=== PATIENT | male | born 1980 | race Caucasian/White ===

== ENCOUNTER → 2017-02-02 | Outpatient (CLI) | payer BC ==
[2017-02-02 18:21] LABS: Blood Urea Nitrogen 14 mg/dL (9-20); Non-African American GFR(MDRD) >60 (>60 ml/min/1.73 sqM)
--- NOTE | 2017-02-03 10:41 | CT ---
EXAMINATION TYPE: CT soft tissue neck w con DATE OF EXAM: 02/02/2017 7:02 PM COMPARISON: NONE HISTORY: Left sided neck swelling without palpable lump CT DLP: 776.5 mGycm CONTRAST: Patient injected with 100 mL of Omnipaque 300. TECHNIQUE: Axial images at 3 mm thick sections. Reconstructed images in the coronal plane and sagitt al plane are reviewed. FINDINGS: Limited CT sections are obtained the lung apices. The lung apices appear clear. CT neck: The torus tubarius and fossa of Rosenmuller are normal. Set Up Machinist spaces are normal. Para nasal sinuses and mastoid air cells are clear. Parotid glands appear normal and symmetrical. Submandibular glands, are normal. Parapharyngeal spac es are normal. No suspicious adenopathy within the upper neck is evident. There are scattered small submental and submandibular lymph nodes present. 0.9 cm lymph node is in the left posterior occipital subcutaneous tissues. Series 3 image 72. No mediastinal adenopathy is within the [id number]. There is an enlarged left supraclavicular lymph node measuring 2.8 cm. A left lower cervical chain ly mph node measures 1.7 cm. These are posterior to the sternocleidomastoid muscle. A 1.5 cm lymph node is on the right in the supraclavicular region. The hypopharynx appears within normal limits. Vocal cord level appear symmetrical. Thyroid as visualized is normal. The ascending thoracic aorta at the level the main pulmonary artery is 3.9 cm patent main pulmonary a rtery the bifurcation is 3.1 cm. Osseous structures are normal. IMPRESSIONS: 1. Enlarged lower cervical chain supraclavicular neck lymph nodes. Additional workup is recommended. Differential could include, but is not limited to, lymphoma, reactionary changes, metastasis.
== END | disposition home or self-care (01) ==
LOC: RADCTMAIN 17:40
PROVIDERS: ATTEND Surgery
DX: R59.0 Localized enlarged lymph nodes (principal); L98.9 Disorder of the skin and subcutaneous tissue, unspecified
CPT/HCPCS: 82565; 84520; 70491; Q9967

== ENCOUNTER 2017-02-22 07:58 | Day surgery (SDC) | payer BC ==
[2017-02-22 08:15] VITALS: RESP 16; TEMP 97.7
[2017-02-22 08:51] LABS: Glucose,Whole Blood 208 mg/dL (75-99)
--- NOTE | 2017-02-22 09:30 | US ---
ULTRASOUND GUIDED FNA LEFT NECK MASS BIOPSY: CLINICAL HISTORY: Left neck mass FINDINGS: The procedure was explained to the patient. The risks, complications, benefits and alternatives were discussed and any questions were answered. Informed consent was obtained. Patient was placed supin e on the ultrasound table and prepped and draped in the usual sterile fashion. Utilizing a 25 gauge needle, single pass was made into the left neck mass. Lesion was completely anechoic and cystic and a pproximately 20 cc of yellow serous fluid was aspirated. Patient was stable throughout the procedure. Pathology is pending. All elements of maximal barrier and sterile technique were utilized. IMPRESSION: 1. Successful ultrasound guided FNA left neck mass biopsy.
[2017-02-22 10:05] VITALS: BP 121/75; PULSE 79
[2017-02-25 09:32] LABS: Mis test requested (Non-blood) BCELL FLOW
== END 2017-02-22 09:45 | disposition home or self-care (01) ==
LOC: RADPROMAIN 07:58
PROVIDERS: ATTEND Surgery
DX: R59.0 Localized enlarged lymph nodes (principal)
CPT/HCPCS: 10022; 76942; 88173; 88184; 88185; 88305; 88341; 88342

== ENCOUNTER 2018-11-08 16:27 | Inpatient (IN) | payer BC, OTHER ==
[2018-11-08] MEDS ORDERED: KETOROLAC 30 MG/ML 1 ML VIAL IVP STA (17:03)
[2018-11-08] MEDS ORDERED: SODIUM CHLORIDE 0.9% 500 ML 500 ML IV ONE (17:03)
--- NOTE | 2018-11-08 17:04 | ED ---
General Adult HPI - General Chief complaint: Skin/Abscess/Foreign Body Stated complaint: lump on neck Time Seen by Provider: 11/08/18 16:45 Source: patient, RN notes reviewed, old records reviewed Mode of arrival: ambulatory Limitations: no limitations - History of Present Illness Initial comments: 38-year-old male brought significant past medical history presents with pain and swelling in the right side of his neck. Symptoms have progressed over the past 3 days. He denies any preceding symptoms. Pain has become quite severe. Worse with range of motion. Denies fever or chills. Denies chest pain. No history of diabetes. No history of cancer. Patient denies symptoms in his right arm. - Related Data Home Medications Medication Instructions Recorded Confirmed [id number]-Trnd [id number] 2 tab PO BID 11/08/18 11/08/18 [Excedrin] Ibuprofen [Motrin Ib] 400 mg PO Q4H 11/08/18 11/08/18 Loratadine [Claritin] 10 mg PO DAILY 11/08/18 11/08/18 Naproxen Sodium [Aleve] 220 mg PO DAILY 11/08/18 11/08/18 Naproxen Sodium [Aleve] 440 mg PO HS 11/08/18 11/08/18 Omeprazole 20 mg PO DAILY 11/08/18 11/08/18 diphenhydrAMINE [Benadryl] 50 mg PO HS PRN 11/08/18 11/08/18 Allergies Allergy/AdvReac Type Severity Reaction Status Date / Time amoxicillin Allergy Unknown Verified 11/08/18 17:22 Childhood Review of Systems ROS Statement: Those systems with pertinent positive or pertinent negative responses have been documented in the HPI. ROS Other: All systems not noted in ROS Statement are negative. Past Medical History Past Medical History: Diabetes Mellitus History of Any Multi-Drug Resistant Organisms: None Reported Additional Past Surgical History / Comment(s): tonsillectomy, adenoids, deviated septum repair. Past Anesthesia/Blood Transfusion Reactions: No Reported Reaction Past Psychological History: Anxiety Smoking Status: Light tobacco smoker Past Alcohol Use History: Rare Past Drug Use History: None Reported - Past Family History Mother Family Medical History: Diabetes Mellitus General Exam Limitations: no limitations General appearance: alert, in no apparent distress Head exam: Present: atraumatic, normocephalic Eye exam: Present: normal appearance, PERRL Neck exam: Present: other (Right lower lateral neck, significant swelling, induration, approximately 67 L wide by 5 cm total. There is some mild overlying erythema, no fluctuance.) Respiratory exam: Present: normal lung sounds bilaterally. Absent: respiratory distress, wheezes Cardiovascular Exam: Present: normal rhythm, tachycardia GI/Abdominal exam: Present: soft. Absent: distended, tenderness Extremities exam: Present: normal inspection, full ROM Neurological exam: Present: alert, oriented X3 Psychiatric exam: Present: normal affect, normal mood Skin exam: Present: warm, dry, intact Course Vital Signs 11/08/18 11/08/18 16:30 19:31 Temperature 98.6 F 99.6 F Pulse Rate 109 H 101 H Respiratory 16 18 Rate Blood Pressure 130/87 153/96 O2 Sat by Pulse 100 97 Oximetry Medical Decision Making - Medical Decision Making 38-year-old male presenting with pain and swelling right lateral neck. Patient has significant induration, erythema, swelling at the base of his right lateral neck. Laboratory studies reveal leukocytosis, 15.1, patient does have elevated glucose, no history of diabetes,. CT shows very enlarged lymph nodes with adjacent edema and cellulitis. Patient had previous lymphadenopathy on the left side of his neck, he is uncertain what his workup revealed for this issue, resolved without treatment. Patient was lost to follow-up due to insurance reasons. Patient will be admitted on IV antibiotics, hematology oncology placed on consult Case discussed with Dr. Wiley will admit. - Lab Data Result diagrams: 11/08/18 17:17 11/08/18 17:17 Lab Results 11/08/18 11/08/18 11/08/18 Range/Units 17:17 17:17 17:17 WBC 15.1 H (3.8-10.6) k/uL RBC 5.76 (4.30-5.90) m/uL Hgb 16.4 (13.0-17.5) gm/dL Hct 48.4 (39.0-53.0) % MCV 84.1 (80.0-100.0) fL MCH 28.5 (25.0-35.0) pg MCHC 33.9 (31.0-37.0) g/dL RDW 13.0 (11.5-15.5) % Plt Count 222 (150-450) k/uL Neutrophils % 82 % Lymphocytes % 10 % Monocytes % 6 % Eosinophils % 1 % Basophils % 1 % Neutrophils # 12.4 H (1.3-7.7) k/uL Lymphocytes # 1.5 (1.0-4.8) k/uL Monocytes # 0.9 (0-1.0) k/uL Eosinophils # 0.1 (0-0.7) k/uL Basophils # 0.1 (0-0.2) k/uL Sodium 136 L (137-145) mmol/L Potassium 4.0 (3.5-5.1) mmol/L Chloride 101 (98-107) mmol/L Carbon Dioxide 23 (22-30) mmol/L Anion Gap 12 mmol/L BUN 8 L (9-20) mg/dL Creatinine 0.55 L (0.66-1.25) mg/dL Est GFR (CKD-EPI)AfAm >90 (>60 ml/min/1.73 sqM) Est GFR (CKD-EPI)NonAf >90 (>60 ml/min/1.73 sqM) Glucose 294 H (74-99) mg/dL Plasma Lactic Acid Kunal 1.4 (0.7-2.0) mmol/L Calcium 9.1 (8.4-10.2) mg/dL Total Bilirubin 1.3 (0.2-1.3) mg/dL AST 30 (17-59) U/L ALT 44 (21-72) U/L Alkaline Phosphatase 127 H (38-126) U/L Total Protein 6.9 (6.3-8.2) g/dL Albumin 3.8 (3.5-5.0) g/dL Disposition Clinical Impression: Lymphadenopathy, Cellulitis Disposition: ADMITTED IP TO THIS [facility] Condition: Stable Is patient prescribed a controlled substance at d/c from ED?: No Referrals: None,Stated [Primary Care Provider] - 1-2 days Decision to Admit Reason: Admit from EC Decision Date: 11/08/18 Decision Time: 19:47
[2018-11-08 17:54] LABS: ALT 44 U/L (21-72); AST 30 U/L (17-59); Albumin 3.8 g/dL (3.5-5.0); Alkaline Phosphatase 127 U/L (38-126); Anion Gap 12 mmol/L; Blood Urea Nitrogen 8 mg/dL (9-20); Calcium 9.1 mg/dL (8.4-10.2); Carbon Dioxide 23 mmol/L (22-30); Chloride 101 mmol/L (98-107); Glucose 294 mg/dL (74-99); Sodium 136 mmol/L (137-145); Total Bilirubin 1.3 mg/dL (0.2-1.3); Total Protein 6.9 g/dL (6.3-8.2)
[2018-11-08 18:00] LABS: Basophils # (A) 0.1 k/uL (0-0.2); Basophils % (A) 1 %; Eosinophils # (A) 0.1 k/uL (0-0.7); Eosinophils % (A) 1 %; HCT 48.4 % (39.0-53.0); HGB 16.4 gm/dL (13.0-17.5); Lymphocytes # (A) 1.5 k/uL (1.0-4.8); Lymphocytes % (A) 10 %; MCH 28.5 pg (25.0-35.0); MCHC 33.9 g/dL (31.0-37.0); MCV 84.1 fL (80.0-100.0); Mean Platelet Volume 9.5; Monocytes # (A) 0.9 k/uL (0-1.0); Monocytes % (A) 6 %; Neutrophils # (A) 12.4 k/uL (1.3-7.7); Neutrophils % (A) 82 %; Platelet Count 222 k/uL (150-450); RBC 5.76 m/uL (4.30-5.90); WBC 15.1 k/uL (3.8-10.6)
[2018-11-08] MEDS ORDERED: CLINDAMYCIN 600 MG in DEXTROSE 5% IN WATER 50 ML IVPB STA ×2 (18:54)
--- NOTE | 2018-11-08 19:20 | CT ---
EXAMINATION TYPE: CT soft tissue neck w con DATE OF EXAM: 11/08/2018 7:01 PM COMPARISON: 02/02/2017 HISTORY: Right-sided neck lump CT DLP: mGycm Automated exposure control for dose reduction was used. CONTRAST: CT scan of the neck is performed following , patient injected with mL of . Axial images are obtained , coronal and sagittal reformatted images are reviewed. The contrast was Isovue 100 mL. FINDINGS: There is normal branching pattern of the great vessels on the aortic arch. Thyroid gland is symmetric . There is normal contrast opacification of the carotid arteries and jugular veins. There is bilatera l contrast opacification of the vertebral arteries. Left vertebral artery is larger than the right. B asilar artery fills mostly from the left side. The parotid glands are fairly symmetric. Submandibular salivary glands are symmetric. There is increa sed density in the subcutaneous fat at the base of the neck on the right side. There are multiple enl arged lymph nodes on the right side posterior triangle that measure up to 3 cm. There is a single enl arged posterior triangle lymph node on the left side that measures 1.5 cm. There is some thickening o f the neck muscles laterally on the right side compared to the left. There is mild subcutaneous edema . There is no discrete fluid collection. There is no anterior cervical adenopathy. There is no evidence of a pharyngeal mass. There is mucosal thickening right maxillary sinus. There i s no evidence of orbital mass. Prevertebral soft tissues appear normal. Epiglottis appears normal. Rothman bglottic trachea appears normal. IMPRESSION: Enlarged posterior triangle right-sided lymph nodes that appears significantly increased compared to old CT scan and consistent with inflammatory process. There is adjacent subcutaneous susan ma consistent with cellulitis. There is enlarged left side posterior triangle lymph node that is sign ificantly smaller than old CT scan. This node measures 1.5 cm in previous exam 3.2 cm. No evidence of an abscess.
[2018-11-08] MEDS ORDERED: NALOXONE 0.4 MG/ML 1 ML VIAL IV PRN (19:41)
[2018-11-08] MEDS: SODIUM CHLORIDE 0.9% 1,000 ML IV SCH (19:51)
[2018-11-08 22:02] LABS: Glucose,Whole Blood 287 mg/dL (75-99)
[2018-11-08 22:04] VITALS: BMI 39.3
[2018-11-08] MEDS: INSULIN ASPART (NovoLOG) 100 UNIT/ML VIAL SQ SCH (22:09)
--- NOTE | 2018-11-08 22:28 | P.HPIM ---
History of Present Illness H&P Date: 11/08/18 Chief Complaint: neck mass 38-year-old male with no significant past medical history. Patient presented to the ER due to severe neck pain. Patient noted that he felt a palpable painful mass over the right side of his neck, started as a small knot that he felt on Tuesday 3 days ago which was increasing in size until today when started to cause pain with range of motion otherwise he denies any fevers or chills he considered seeking medical attention went to urgent care who sent him to the ER. Patient has never had anything similar on this side but recalls few years ago had palpable nodes on the left side of his neck which is not similar to this presentation per his report at that time he had FNA biopsy that showed reactive nodes. Patient denies any recent traveling or injury to the neck he denies any bug bites. He denies any active dental issues (patient in general has poor dental hygiene) patient denies any pain in his ears any difficulty with swallowing or any trouble breathing. And he denies any chest pain abdominal pain diarrhea nausea vomiting. In the emergency department CAT scan of the neck suggested cellulitis and inflammatory changes in the subcutaneous tissue at the area of the mass with multiple reactive lymph nodes. Review of Systems Pertinent positives as noted in HPI. All other systems were reviewed and are negative Past Medical History Past Medical History: Diabetes Mellitus History of Any Multi-Drug Resistant Organisms: None Reported Additional Past Surgical History / Comment(s): tonsillectomy, adenoids, deviated septum repair. Past Anesthesia/Blood Transfusion Reactions: No Reported Reaction Past Psychological History: Anxiety Smoking Status: Light tobacco smoker Past Alcohol Use History: Rare Past Drug Use History: None Reported - Past Family History Mother Family Medical History: Diabetes Mellitus Medications and Allergies Home Medications Medication Instructions Recorded Confirmed Type [id number]-[id number] [id number] 2 tab PO BID 11/08/18 11/08/18 History [Excedrin] Ibuprofen [Motrin Ib] 400 mg PO Q4H 11/08/18 11/08/18 History Loratadine [Claritin] 10 mg PO DAILY 11/08/18 11/08/18 History Naproxen Sodium [Aleve] 220 mg PO DAILY 11/08/18 11/08/18 History Naproxen Sodium [Aleve] 440 mg PO HS 11/08/18 11/08/18 History Omeprazole 20 mg PO DAILY 11/08/18 11/08/18 History diphenhydrAMINE [Benadryl] 50 mg PO HS PRN 11/08/18 11/08/18 History Allergies Allergy/AdvReac Type Severity Reaction Status Date / Time amoxicillin Allergy Unknown Verified 11/08/18 17:22 Childhood Physical Exam Vitals: Vital Signs Temp Pulse Resp BP Pulse Ox 11/08/18 20:40 99.8 F H 99 18 131/67 97 11/08/18 19:31 99.6 F 101 H 18 153/96 97 11/08/18 16:30 98.6 F 109 H 16 130/87 100 Intake and Output 11/08/18 11/08/18 11/08/18 06:59 14:59 22:59 Other: Weight 113.852 kg Constitutional: No acute distress, conversant, pleasant Eyes: Anicteric sclerae, moist conjunctiva, no lid-lag Pupils equal round reactive to light ENMT: NC/AT Oropharynx clear, no erythema, no exudates, very poor dental hygiene Neck: Supple, painful range of motion when he bends his neck to the right side, palpable painful mass at the base of the right side of the neck tender to palpation attached to the overlying skin slightly fluctuant but painful no surrounding erythema or induration over the skin no signs of ulcers or skin breakage. No carotid bruits No thyromegaly Lungs: Clear to auscultation Clear to percussion Normal respiratory effort, no accessory muscle use Cardiovascular: Heart regular in rate and rhythm, No murmurs, gallops, or rubs No peripheral edema Abdominal: Soft Nontender, no guarding, rebound or rigidity Abdomen moving with respiration Normoactive bowel sounds No hepatomegaly, No splenomegaly No palpable mass No abdominal wall hernia noted Skin: Normal temperature, tone, texture, turgor No induration No subcutaneous nodules No rash, lesions No ulcers Extremities: No digital cyanosis No clubbing Pedal pulses intact and symmetrical Radial pulses intact and symmetrical No calf tenderness Psychiatric: Alert and oriented to person, place and time Appropriate affect fair judgement Neuro Muscles Strength 5/5 in all 4 extremities Sensation to light touch grossly present throughout Cranial nerves II-XII grossly intact No focal sensory deficits Lymphatics: Palpable cervical lymph nodes multiple Results CBC & Chem 7: 11/08/18 17:17 11/08/18 17:17 Labs: Abnormal Lab Results - Last 24 Hours (Table) 11/08/18 11/08/18 Range/Units 17:17 17:17 WBC 15.1 H (3.8-10.6) k/uL Neutrophils # 12.4 H (1.3-7.7) k/uL Sodium 136 L (137-145) mmol/L BUN 8 L (9-20) mg/dL Creatinine 0.55 L (0.66-1.25) mg/dL Glucose 294 H (74-99) mg/dL Alkaline Phosphatase 127 H (38-126) U/L Assessment and Plan Assessment: 38-year-old male with no significant past medical history admitted as an inpatient with anticipated length of stay more than 48 hours due to suspected subcutaneous abscess over the base of the right side of the neck along with reactive lymph nodes patient was started on IV antibiotic awaiting general surgery evaluation for possible drainage. Patient had history 2 years ago where he had swollen lymph nodes over the left side of the neck FNA biopsy was performed at that time revealed reactive lymph nodes but patient was lost to follow-up at that time Plan: Sepsis 2/2 Skin abscess with reactive lymph nodes Cultures IV clindamycin Gen. surgery consultation for possible drainage Pain control with Toradol Monitor vital signs Possible diabetes mellitus Check A1c Insulin sliding scale DVT prophylaxis heparin subcu 3 times a day GERD on omeprazole Surrogate decision-maker: Patient CODE STATUS: Full code Discussed with: Patient, ER, RN Anticipated discharge: 48-[address]: Home A total of 60 minutes was spent on the care of this complex patient more than 50 % of the time was spent in counseling and care coordination.
[2018-11-08] MEDS: HEPARIN SODIUM,PORCINE 5,000 UNIT/ML 1 ML VIAL SQ SCH (23:12)
[2018-11-08] MEDS: diphenhydrAMINE 50 MG CAP PO PRN (23:13)
[2018-11-08] MEDS: KETOROLAC 30 MG/ML 1 ML VIAL IVP SCH (23:13)
[2018-11-08] MEDS: CLINDAMYCIN 600 MG in DEXTROSE 5% IN WATER 50 ML IVPB SCH ×2 (23:14)
[2018-11-09] MEDS: KETOROLAC 30 MG/ML 1 ML VIAL IVP SCH ×4 (06:02→23:23)
[2018-11-09 07:17] LABS: Glucose,Whole Blood 202 mg/dL (75-99)
[2018-11-09] MEDS ORDERED: INSULIN ASPART (NovoLOG) 100 UNIT/ML VIAL SQ SCH (07:30)
[2018-11-09] MEDS: INSULIN ASPART (NovoLOG) 100 UNIT/ML VIAL SQ SCH ×4 (07:50→21:26)
[2018-11-09] MEDS: PANTOPRAZOLE 40 MG TABLET PO SCH (07:50)
[2018-11-09] MEDS: SODIUM CHLORIDE 0.9% 1,000 ML IV SCH ×3 (07:51→21:27)
[2018-11-09] MEDS: HEPARIN SODIUM,PORCINE 5,000 UNIT/ML 1 ML VIAL SQ SCH ×3 (07:51→23:22)
[2018-11-09] MEDS: CLINDAMYCIN 600 MG in DEXTROSE 5% IN WATER 50 ML IVPB SCH ×6 (08:01→23:22)
[2018-11-09 09:45] LABS: Basophils # (A) 0.1 k/uL (0-0.2); Basophils % (A) 0 %; Eosinophils # (A) 0.1 k/uL (0-0.7); Eosinophils % (A) 1 %; HCT 40.9 % (39.0-53.0); Lymphocytes # (A) 0.9 k/uL (1.0-4.8); Lymphocytes % (A) 7 %; MCH 28.2 pg (25.0-35.0); MCHC 32.7 g/dL (31.0-37.0); MCV 86.1 fL (80.0-100.0); Monocytes # (A) 0.9 k/uL (0-1.0); Monocytes % (A) 7 %; Neutrophils # (A) 11.4 k/uL (1.3-7.7); Neutrophils % (A) 85 %; Platelet Count 182 k/uL (150-450); RBC 4.75 m/uL (4.30-5.90); WBC 13.5 k/uL (3.8-10.6)
[2018-11-09 09:57] LABS: HGB 13.4 gm/dL (13.0-17.5)
[2018-11-09 10:05] LABS: Anion Gap 9 mmol/L; Blood Urea Nitrogen 11 mg/dL (9-20); Carbon Dioxide 20 mmol/L (22-30); Chloride 106 mmol/L (98-107); Glucose 259 mg/dL (74-99); Potassium 3.7 mmol/L (3.5-5.1); Sodium 135 mmol/L (137-145)
[2018-11-09 12:33] LABS: Glucose,Whole Blood 242 mg/dL (75-99)
--- NOTE | 2018-11-09 14:23 | P.GSCN ---
History of Present Illness Consult date: 11/09/18 Reason for Consult: Neck mass, abscess Requesting physician: Nishant Liu History of present illness: CHIEF COMPLAINT: neck pain HISTORY OF PRESENT ILLNESS: 38-year-old male presented to the emergency room with a chief complaint of neck pain. General surgery was consulted for further evaluation. Patient reports area is tender. Denies fever or chills at home. Denies drainage. Patient reports similiar episode about two years ago but was on his left side of his neck and was treated with antibiotics. PAST MEDICAL HISTORY: See list. PAST SURGICAL HISTORY: See list. MEDICATIONS: See list. ALLERGIES: See list. SOCIAL HISTORY: No illicit drug use. REVIEW OF SYSTEMS: CONSTITUTIONAL: Denies fever or chills. HEENT: Denies blurred vision, vision changes, or eye pain. Denies hemoptysis ENDOCRINE: Denies heat or cold intolerance. CARDIOVASCULAR: Denies chest pain or pressure. RESPIRATORY: No shortness of breath. GASTROINTESTINAL: Denies abdominal pain. Denies nausea or vomiting. NEURO: Denies history of seizures. PSYCH: No depression or suicidal ideation HEMATOLOGIC: Denies bleeding disorders. LYMPHATIC: Reports pain to right side of neck GENITOURINARY: Denies any blood in urine or increased urinary frequency. MUSCULOSKELETAL: Denies myalgias. Denies joint swelling. Denies decreased range of motion beyond patients baseline. SKIN: Denies pruitis. Denies rash. PHYSICAL EXAM: VITAL SIGNS: Currently stable. GENERAL: Well-developed in no acute distress. HEENT: No sclera icterus. Extraocular movements grossly intact. Moist buccal mucosa. Head is atraumatic, normocephalic. Hears conversational speech. No nasal drainage. NECK: Palpable mass to right side of neck. No erythema. No drainage. No evidence of cellulitis. CHEST: Non-labored respirations and equal bilateral excursions. CARDIOVASCULAR: Regular rate with regular rhythm. Palpable 2+ radial pulses. ABDOMEN: Soft. Nondistended. MUSCULOSKELETAL: No clubbing, cyanosis or edema. NEUROLOGIC: No focal or lateralizing signs. Cranial nerves II through XII grossly intact. PSYCH: Appropriate affect. Alert and oriented to person, place and time. SKIN: Well perfused. Good skin turgor. ASSESSMENT: 1. Lymphadenitis PLAN: 1. No surgical intervention is advised at this time 2. Continue antibiotics 3. May benefit from infectious disease consult Nurse practitioner note has been reviewed by physician. Signing provider agrees with the documented findings, assessment, and plan of care. Past Medical History Past Medical History: Diabetes Mellitus Additional Past Medical History / Comment(s): in past "blood in [place] had colonoscopy -had a colon polyp burst", depression, History of Any Multi-Drug Resistant Organisms: None Reported Additional Past Surgical History / Comment(s): tonsillectomy, adenoids, deviated septum repair. Past Anesthesia/Blood Transfusion Reactions: No Reported Reaction Additional Past Anesthesia/Blood Transfusion Reaction / Comm: has never received a blood transfusion Past Psychological History: Anxiety Smoking Status: Light tobacco smoker Past Alcohol Use History: Rare Past Drug Use History: None Reported - Past Family History Mother Family Medical History: Diabetes Mellitus Father History Unknown: Yes Additional Family Medical History / Comment(s): - cause unk Medications and Allergies Home Medications Medication Instructions Recorded Confirmed Type [id number] [id number] 2 tab PO BID 11/08/18 11/08/18 History [Excedrin] Ibuprofen [Motrin Ib] 400 mg PO Q4H 11/08/18 11/08/18 History Loratadine [Claritin] 10 mg PO DAILY 11/08/18 11/08/18 History Naproxen Sodium [Aleve] 220 mg PO DAILY 11/08/18 11/08/18 History Naproxen Sodium [Aleve] 440 mg PO HS 11/08/18 11/08/18 History Omeprazole 20 mg PO DAILY 11/08/18 11/08/18 History diphenhydrAMINE [Benadryl] 50 mg PO HS PRN 11/08/18 11/08/18 History Allergies Allergy/AdvReac Type Severity Reaction Status Date / Time amoxicillin Allergy Unknown Verified 11/08/18 17:22 Childhood eggs AdvReac Unknown Uncoded 11/09/18 07:26 Surgical - Exam Vital Signs Temp Pulse Resp BP Pulse Ox 98.6 F 109 H 16 130/87 100 11/08/18 16:30 11/08/18 16:30 11/08/18 16:30 11/08/18 16:30 11/08/18 16:30 Results - Labs 11/09/18 09:06 11/09/18 09:06 Abnormal Lab Results - Last 24 Hours (Table) 11/08/18 11/08/18 11/08/18 Range/Units 17:17 17:17 21:54 WBC 15.1 H (3.8-10.6) k/uL Neutrophils # 12.4 H (1.3-7.7) k/uL Lymphocytes # (1.0-4.8) k/uL Sodium 136 L (137-145) mmol/L Carbon Dioxide (22-30) mmol/L BUN 8 L (9-20) mg/dL Creatinine 0.55 L (0.66-1.25) mg/dL Glucose 294 H (74-99) mg/dL POC Glucose (mg/dL) 287 H (75-99) mg/dL Calcium (8.4-10.2) mg/dL Alkaline Phosphatase 127 H (38-126) U/L 11/09/18 11/09/18 11/09/18 Range/Units 07:14 09:06 09:06 WBC 13.5 H (3.8-10.6) k/uL Neutrophils # 11.4 H (1.3-7.7) k/uL Lymphocytes # 0.9 L (1.0-4.8) k/uL Sodium 135 L (137-145) mmol/L Carbon Dioxide 20 L (22-30) mmol/L BUN (9-20) mg/dL Creatinine 0.50 L (0.66-1.25) mg/dL Glucose 259 H (74-99) mg/dL POC Glucose (mg/dL) 202 H (75-99) mg/dL Calcium 8.0 L (8.4-10.2) mg/dL Alkaline Phosphatase (38-126) U/L 11/09/18 Range/Units 12:31 WBC (3.8-10.6) k/uL Neutrophils # (1.3-7.7) k/uL Lymphocytes # (1.0-4.8) k/uL Sodium (137-145) mmol/L Carbon Dioxide (22-30) mmol/L BUN (9-20) mg/dL Creatinine (0.66-1.25) mg/dL Glucose (74-99) mg/dL POC Glucose (mg/dL) 242 H (75-99) mg/dL Calcium (8.4-10.2) mg/dL Alkaline Phosphatase (38-126) U/L Diabetes panel 11/08/18 11/09/18 Range/Units 17:17 09:06 Sodium 136 L 135 L (137-145) mmol/L Potassium 4.0 3.7 (3.5-5.1) mmol/L Chloride 101 106 (98-107) mmol/L Carbon Dioxide 23 20 L (22-30) mmol/L BUN 8 L 11 (9-20) mg/dL Creatinine 0.55 L 0.50 L (0.66-1.25) mg/dL Glucose 294 H 259 H (74-99) mg/dL Calcium 9.1 8.0 L (8.4-10.2) mg/dL AST 30 (17-59) U/L ALT 44 (21-72) U/L Alkaline Phosphatase 127 H (38-126) U/L Total Protein 6.9 (6.3-8.2) g/dL Albumin 3.8 (3.5-5.0) g/dL Calcium panel 11/08/18 11/09/18 Range/Units 17:17 09:06 Calcium 9.1 8.0 L (8.4-10.2) mg/dL Albumin 3.8 (3.5-5.0) g/dL Pituitary panel 11/08/18 11/09/18 Range/Units 17:17 09:06 Sodium 136 L 135 L (137-145) mmol/L Potassium 4.0 3.7 (3.5-5.1) mmol/L Chloride 101 106 (98-107) mmol/L Carbon Dioxide 23 20 L (22-30) mmol/L BUN 8 L 11 (9-20) mg/dL Creatinine 0.55 L 0.50 L (0.66-1.25) mg/dL Glucose 294 H 259 H (74-99) mg/dL Calcium 9.1 8.0 L (8.4-10.2) mg/dL Adrenal panel 11/08/18 11/09/18 Range/Units 17:17 09:06 Sodium 136 L 135 L (137-145) mmol/L Potassium 4.0 3.7 (3.5-5.1) mmol/L Chloride 101 106 (98-107) mmol/L Carbon Dioxide 23 20 L (22-30) mmol/L BUN 8 L 11 (9-20) mg/dL Creatinine 0.55 L 0.50 L (0.66-1.25) mg/dL Glucose 294 H 259 H (74-99) mg/dL Calcium 9.1 8.0 L (8.4-10.2) mg/dL Total Bilirubin 1.3 (0.2-1.3) mg/dL AST 30 (17-59) U/L ALT 44 (21-72) U/L Alkaline Phosphatase 127 H (38-126) U/L Total Protein 6.9 (6.3-8.2) g/dL Albumin 3.8 (3.5-5.0) g/dL
--- NOTE | 2018-11-09 16:05 | P.PN ---
Subjective Progress Note Date: 11/09/18 The patient was seen and examined at the bedside. He notes continued right sided neck and face pain no denied any fever, chills, visual disturbances, weakness, numbness, tingling, chest pain, or shortness of breath. Objective - Vital Signs Vital signs: Vital Signs Temp 99.1 F 11/09/18 15:28 Pulse 91 11/09/18 15:28 Resp 16 11/09/18 15:28 BP 116/66 11/09/18 15:28 Pulse Ox 96 11/09/18 15:28 Intake & Output 11/08/18 11/09/18 11/09/18 18:59 06:59 18:59 Intake Total 800 1250 Output Total 1 Balance 799 1250 Weight 113.852 kg Intake: Oral 800 1250 Output: Stool 1 Other: # Voids 1 2 - Exam General: Non-toxic, in no acute distress, appears stated age, obese HEENT: Right-sided neck palpable mass, some erythema and tenderness, anicteric sclerae, moist conjunctiva, no lid-lag, PERRLA, poor dentition Cardiovascular: S1/S2 wnl, no murmurs, rubs, or gallops Lungs: Clear to auscultation, normal respiratory effort, no accessory muscle use Abdominal: Soft, non-tender, non-distended, no guarding, rebound, or rigidity Skin: Warm, dry Extremities: No edema or contractures Psychiatric: Alert and oriented to person, place and time, appropriate affect Neuro: CN II-XII grossly intact, Strength 5/5 in all 4 extremities, Speech intact, Sensation to light touch grossly intact throughout - Labs CBC & Chem 7: 11/09/18 09:06 11/09/18 09:06 Labs: Abnormal Lab Results - Last 24 Hours (Table) 11/08/18 11/08/18 11/08/18 Range/Units 17:17 17:17 21:54 WBC 15.1 H (3.8-10.6) k/uL Neutrophils # 12.4 H (1.3-7.7) k/uL Lymphocytes # (1.0-4.8) k/uL Sodium 136 L (137-145) mmol/L Carbon Dioxide (22-30) mmol/L BUN 8 L (9-20) mg/dL Creatinine 0.55 L (0.66-1.25) mg/dL Glucose 294 H (74-99) mg/dL POC Glucose (mg/dL) 287 H (75-99) mg/dL Calcium (8.4-10.2) mg/dL Alkaline Phosphatase 127 H (38-126) U/L 11/09/18 11/09/18 11/09/18 Range/Units 07:14 09:06 09:06 WBC 13.5 H (3.8-10.6) k/uL Neutrophils # 11.4 H (1.3-7.7) k/uL Lymphocytes # 0.9 L (1.0-4.8) k/uL Sodium 135 L (137-145) mmol/L Carbon Dioxide 20 L (22-30) mmol/L BUN (9-20) mg/dL Creatinine 0.50 L (0.66-1.25) mg/dL Glucose 259 H (74-99) mg/dL POC Glucose (mg/dL) 202 H (75-99) mg/dL Calcium 8.0 L (8.4-10.2) mg/dL Alkaline Phosphatase (38-126) U/L 11/09/18 Range/Units 12:31 WBC (3.8-10.6) k/uL Neutrophils # (1.3-7.7) k/uL Lymphocytes # (1.0-4.8) k/uL Sodium (137-145) mmol/L Carbon Dioxide (22-30) mmol/L BUN (9-20) mg/dL Creatinine (0.66-1.25) mg/dL Glucose (74-99) mg/dL POC Glucose (mg/dL) 242 H (75-99) mg/dL Calcium (8.4-10.2) mg/dL Alkaline Phosphatase (38-126) U/L Assessment and Plan Plan: Sepsis secondary to skin abscess w/ reactive lymph nodes -Continue with IV clindamycin -General surgery recommendations appreciated -ID consulted -Pain control with Toradol -Continue with IV fluids with normal saline 150 mL an hour Diabetes mellitus -F/u A1C -TITUS with FS DVT//GI prophylaxis -Heparin -No indication for GI prophylaxis Discussed with: Patient Anticipated discharge date: 11/11/[address]: home A total of 30 minutes was spent on the care of this complex patient more than 50 % of the time was spent in counseling and care coordination.
[2018-11-09 16:22] LABS: Hemoglobin A1C 13.3 % (4.0-6.0)
[2018-11-09 17:28] LABS: Glucose,Whole Blood 213 mg/dL (75-99)
--- NOTE | 2018-11-09 17:41 | P.CONS ---
History of Present Illness - Reason for Consult Consult date: 11/09/18 lymphadenopathy - History of Present Illness The patient is a 38-year-old gentleman, with overall well- controlled medical issues. The patient states that he had felt some pain and a lump in the right middle like area about 3-4 days ago. He initially thought that this was an insect bite. This area continued to increase in size, with increasing pain and warmth. Due to progression he came to the emergency room. He had a CT scan of the soft tissues of the neck done, which showed soft tissue abnormality in this area suggestive of cellulitis. He was also noted to have enlarged lymph nodes in the right middle cervical, and posterior triangle. Incidentally the patient had presented with a mass in the left neck, in 02/23. He was found to have an enlarged lymph node, about 3.2 cm in the left lower cervical chain. FNA at that time indicated reactive etiology. The current CAT scan shows marked decrease in size of that note to about 1.5 cm The patient denied any trauma to the neck area. He denies any current dental problems Review of Systems Constitutional: Denies chills, Denies fever Eyes: denies blurred vision, denies pain Ears: deny: decreased hearing, ear discharge, earache, tinnitus Ears, nose, mouth and throat: Reports neck lump Cardiovascular: Denies chest pain, Denies shortness of breath Respiratory: Denies cough Gastrointestinal: Denies abdominal pain, Denies diarrhea, Denies nausea, Denies vomiting Genitourinary: Reports as per HPI (no specific complaints) Musculoskeletal: Denies myalgias Integumentary: Reports as per HPI Neurological: Denies numbness, Denies weakness Psychiatric: Denies anxiety, Denies depression Endocrine: Denies fatigue, Denies weight change Hematologic/Lymphatic: Reports as per HPI, Reports lymphadenopathy Past Medical History Past Medical History: Diabetes Mellitus Additional Past Medical History / Comment(s): in past "blood in [facility] had colonoscopy -had a colon polyp burst", depression, History of Any Multi-Drug Resistant Organisms: None Reported Additional Past Surgical History / Comment(s): tonsillectomy, adenoids, deviated septum repair. Past Anesthesia/Blood Transfusion Reactions: No Reported Reaction Additional Past Anesthesia/Blood Transfusion Reaction / Comm: has never received a blood transfusion Past Psychological History: Anxiety Smoking Status: Light tobacco smoker Past Alcohol Use History: Rare Past Drug Use History: None Reported - Past Family History Mother Family Medical History: Diabetes Mellitus Father History Unknown: Yes Additional Family Medical History / Comment(s): - cause unk Medications and Allergies Home Medications Medication Instructions Recorded Confirmed Type [id number] 2 tab PO BID 11/08/18 11/08/18 History [Excedrin] Ibuprofen [Motrin Ib] 400 mg PO Q4H 11/08/18 11/08/18 History Loratadine [Claritin] 10 mg PO DAILY 11/08/18 11/08/18 History Naproxen Sodium [Aleve] 220 mg PO DAILY 11/08/18 11/08/18 History Naproxen Sodium [Aleve] 440 mg PO HS 11/08/18 11/08/18 History Omeprazole 20 mg PO DAILY 11/08/18 11/08/18 History diphenhydrAMINE [Benadryl] 50 mg PO HS PRN 11/08/18 11/08/18 History Allergies Allergy/AdvReac Type Severity Reaction Status Date / Time amoxicillin Allergy Unknown Verified 11/08/18 17:22 Childhood eggs AdvReac Unknown Uncoded 11/09/18 07:26 Physical Exam Vitals: Vital Signs Temp Pulse Pulse Resp BP BP BP 11/09/18 15:28 99.1 F 91 16 116/66 11/09/18 07:55 98.0 F 91 16 123/74 11/08/18 23:00 98.6 F 106 H 16 144/70 11/08/18 20:40 99.8 F H 99 18 131/67 11/08/18 19:31 99.6 F 101 H 18 153/96 Pulse Ox 11/09/18 15:28 96 11/09/18 07:55 95 11/08/18 23:00 96 11/08/18 20:40 97 11/08/18 19:31 97 Intake and Output 11/09/18 11/09/18 11/09/18 06:59 14:59 22:59 Intake Total 200 1250 Output Total 1 Balance 199 1250 Intake: Oral 200 1250 Output: Stool 1 Other: # Voids 2 - Constitutional General appearance: no acute distress - EENT Eyes: EOMI, PERRLA, poor dentition (Overall few remaining teeth. These are in poor condition with significant caries) ENT: hearing grossly normal, normal oropharynx - Neck firm masslike area involving right mid neck extending to the medial right supraclavicular fossa. Tender to palpation. Overlying skin is quite warm. 2-3 mildly enlarged lymph nodes in close proximity. Shotty nodes in the right posterior triangle area Palpable 1-1.5 cm node in the left lower neck area. Normal consistency, movable, nontender Neck: lymphadenopathy Thyroid: bilateral: normal size - Respiratory Respiratory: bilateral: CTA - Cardiovascular Rhythm: regular Heart sounds: normal: S1, S2 - Gastrointestinal General gastrointestinal: normal bowel sounds, soft - Integumentary right neck changes as described above Integumentary: normal - Neurologic Neurologic: CNII-XII intact - Musculoskeletal Musculoskeletal: gait normal, strength equal bilaterally - Psychiatric Psychiatric: A&O x's 3, appropriate affect Results CBC & Chem 7: 11/09/18 09:06 11/09/18 09:06 Labs: Abnormal Lab Results - Last 24 Hours (Table) 11/08/18 11/08/18 11/08/18 Range/Units 17:17 17:17 17:17 WBC 15.1 H (3.8-10.6) k/uL Neutrophils # 12.4 H (1.3-7.7) k/uL Lymphocytes # (1.0-4.8) k/uL Sodium 136 L (137-145) mmol/L Carbon Dioxide (22-30) mmol/L BUN 8 L (9-20) mg/dL Creatinine 0.55 L (0.66-1.25) mg/dL Glucose 294 H (74-99) mg/dL POC Glucose (mg/dL) (75-99) mg/dL Hemoglobin A1c 13.3 H (4.0-6.0) % Calcium (8.4-10.2) mg/dL Alkaline Phosphatase 127 H (38-126) U/L 11/08/18 11/09/18 11/09/18 Range/Units 21:54 07:14 09:06 WBC 13.5 H (3.8-10.6) k/uL Neutrophils # 11.4 H (1.3-7.7) k/uL Lymphocytes # 0.9 L (1.0-4.8) k/uL Sodium (137-145) mmol/L Carbon Dioxide (22-30) mmol/L BUN (9-20) mg/dL Creatinine (0.66-1.25) mg/dL Glucose (74-99) mg/dL POC Glucose (mg/dL) 287 H 202 H (75-99) mg/dL Hemoglobin A1c (4.0-6.0) % Calcium (8.4-10.2) mg/dL Alkaline Phosphatase (38-126) U/L 11/09/18 11/09/18 Range/Units 09:06 12:31 WBC (3.8-10.6) k/uL Neutrophils # (1.3-7.7) k/uL Lymphocytes # (1.0-4.8) k/uL Sodium 135 L (137-145) mmol/L Carbon Dioxide 20 L (22-30) mmol/L BUN (9-20) mg/dL Creatinine 0.50 L (0.66-1.25) mg/dL Glucose 259 H (74-99) mg/dL POC Glucose (mg/dL) 242 H (75-99) mg/dL Hemoglobin A1c (4.0-6.0) % Calcium 8.0 L (8.4-10.2) mg/dL Alkaline Phosphatase (38-126) U/L Comments: CT neck report, current and 2017, reviewed and summarized above Path reports from 2017 reviewed and summarized Assessment and Plan (1) Lymphadenopathy Narrative/Plan: Consult was placed for right neck lymphadenopathy as noted. The patient also had a prior history of an enlarged left neck nodes. The current adenopathy appears to be related to the right neck soft tissue inflammation, most suggestive of a significant cellulitis. Given that the prior enlarged lymph node was biopsied with negative pathology, and has since decreased in size , the current lymph node enlargement is felt to be most likely reactive with this clinical picture. Suspicion for malignant etiology is low. Labs were also reviewed and were mostly within normal limits. The patient has a mild leukocytosis with predominant neutrophilia, consistent with inflammation Check CT scan of the chest, as well as additional labs including autoimmune markers , HIV and protein electrophoresis studies. If negative, I would recommend follow-up with treatment for the right neck cellulitis. Tissue diagnosis would be recommended only if adenopathy persists/progresses despite resolution of the soft tissue inflammation Current Visit: Yes Status: Acute Code(s): R59.1 - GENERALIZED ENLARGED LYMPH NODES SNOMED Code(s): 48478112 (2) Cellulitis Narrative/Plan: As noted, based on clinical presentation, including physical exam features, soft tissue infection is felt to be most likely. The patient is already on antibiotics. Cellulitis originating from the skin or infection alternating from the oropharynx of both possibilities. Surgery has been consulted. Defer to the admitting service, and surgery for further management Current Visit: Yes Status: Acute Code(s): L03.90 - CELLULITIS, UNSPECIFIED SNOMED Code(s): 493876188 Plan: defer to the admitting service for management of his other medical problems
[2018-11-09] MEDS ORDERED: RX INFO: IV CONTRAST WAS GIVEN 1 EACH MISC MISCELLANE PRN (18:31)
--- NOTE | 2018-11-09 20:38 | CT ---
EXAMINATION TYPE: CT chest w con DATE OF EXAM: 11/09/2018 COMPARISON: None HISTORY: Adenopathy in the neck. CT DLP: 645.9 mGycm Automated exposure control for dose reduction was used. CONTRAST: CT scan of the chest is performed with IV Contrast, patient injected with 100ml mL of Isovue 300. FINDINGS: There is subsegmental atelectasis at the posterior lung bases. There is no adrenal mass. There is manish e fatty infiltration of the liver. Spleen is enlarged and measures 17.5 cm. Heart size is normal. There is no pericardial effusion. There are no hilar masses. There is no medias tinal adenopathy. Thoracic aorta shows no aneurysm or dissection. There is no evidence of a pulmonary mass. The bony thorax is intact. IMPRESSION: Mild splenomegaly. Mild atelectasis at the posterior lung bases.
[2018-11-09 20:41] LABS: Glucose,Whole Blood 254 mg/dL (75-99)
[2018-11-09] MEDS: diphenhydrAMINE 50 MG CAP PO PRN (21:56)
[2018-11-09] MEDS ORDERED: VANCOMYCIN IV PER PHARMACY 1 EACH MISC MISCELLANE PRN (23:32)
[2018-11-09] MEDS ORDERED: VANCOMYCIN 2,250 MG in SODIUM CHLORIDE 0.9% 500 ML 500 ML IVPB ONE (23:45)
[2018-11-10] MEDS: SODIUM CHLORIDE 0.9% 1,000 ML IV SCH ×3 (04:29→17:01)
[2018-11-10] MEDS: KETOROLAC 30 MG/ML 1 ML VIAL IVP SCH ×3 (05:16→18:51)
[2018-11-10 07:29] LABS: Glucose,Whole Blood 196 mg/dL (75-99)
--- NOTE | 2018-11-10 07:57 | CONS ---
CONSULTATION DATE OF SERVICE: 11/09/2018. REASON FOR CONSULTATION: Right side neck lymphadenitis and cellulitis for antibiotic recommendation. HISTORY OF PRESENT ILLNESS: The patient is a 38-year-old male presenting to the ER at [facility] yesterday afternoon with chief complaints of pain and swelling in the right side of the neck that apparently has been going on for about 3 days before admitted hospital. Patient said the area had slowly increased in size and throbbing to dull aching of 7 to 8 out of 10 that has progressively got worse with no radiation with associated tenderness to touch and worse with range of motion of the neck area. The patient categorically denies having any difficulty swallowing. The patient did have a bad dentition, but currently denies having any pain on chewing for any specific teeth. The patient denies having difficulty swallowing or sore throat and no URI symptoms. The patient denies having any chest pain or shortness of breath or cough. No abdominal pain. No diarrhea. With these symptoms, the patient has been evaluated by the ER physician on arrival to the ER. The patient was afebrile subsequently has been having a low grade fever of 99.8 to 99.7, slightly tachycardic and the patient did have an elevated white count 15.1 down to 13.5 today though. The patient did have a blood culture, which is currently pending. He did have a soft tissue neck CT which basically showed enlarged posterior triangle right sided lymph node that appears slightly increased compared to old CT consistent with inflammatory process and adjacent subcutaneous edema consistent with cellulitis with no abnormality in the rest of the soft tissue of the neck area. He also had CT of the chest, which was negative except showing some splenomegaly. Patient was treated with clindamycin. Infectious Disease was consulted for further recommendation regarding antibiotic therapy. REVIEW OF SYSTEMS: Positive points have been mentioned in HPI. Rest of the systems has been negative. PAST MEDICAL HISTORY: Diabetes mellitus, anxiety. PAST SURGICAL HISTORY: Tonsillectomy, adenoidectomy, deviated septum repair and last year. SOCIAL HISTORY: Positive for smoking. Rarely drinks. No drug use. FAMILY HISTORY: Mother with history of diabetes mellitus. ALLERGIES: Allergies to AMOXICILLIN. MEDICATIONS: Medications include the patient is currently on clindamycin 600 q.8. He is on Benadryl, heparin, NovoLog, Toradol, Narcan, Protonix. PHYSICAL EXAMINATION: On examination, blood pressure is 121/72 with a pulse of 83, temperature 99.7. He is 97% on room air. General description is a a middle-aged male lying in bed in no distress. No tachypnea or accessory muscle of respiration use. HEENT examination shows no pallor or scleral icterus. Oral mucous membrane is dry. No pharyngeal erythema or thrush. NECK: Trachea central. No thyromegaly. Patient did have a painful posterior cervical area, currently no fluctuation or induration was positive. LUNGS: Unlabored breathing, clear to auscultation anteriorly. No wheeze or crackle. HEART: S1, S2. Regular rate and rhythm. ABDOMEN: Soft, no tenderness. EXTREMITIES: No edema of the feet. SKIN EXAMINATION: No rash or mass palpable. NEUROLOGICALLY: The patient is awake, alert, oriented x3. Mood and affect normal. LABS: Hemoglobin 13.4, white count 13.5 BUN of 11, creatinine 0.50. Blood culture obtained currently pending. DIAGNOSTIC IMPRESSION AND PLAN: 1. Patient with right posterior neck lymphadenopathy with possible underlying cellulitis with etiology of lymphadenopathy secondary to cellulitis source is the possible nature of his bad dentition as CT of the soft tissue of the neck did not show any evidence of inflammation to be responsible for this lymphadenopathy will need for the oral sarita as well as gram positive skin sarita. 2. Patient did have AMOXICILLIN allergy that will limit the number of antibiotics that will be safely used. PLAN: 1. We will add vancomycin pharmacy to dose target of 15 and continue with clindamycin. 2. We will re-evaluate the patient tomorrow and review the CT with the radiologist before any further recommendation. Thank you for this consultation. Will follow this patient along with you. MMODL / IJN: [id number] /
[2018-11-10] MEDS: PANTOPRAZOLE 40 MG TABLET PO SCH (08:24)
[2018-11-10] MEDS: INSULIN ASPART (NovoLOG) 100 UNIT/ML VIAL SQ SCH ×4 (08:24→23:53)
[2018-11-10] MEDS: HEPARIN SODIUM,PORCINE 5,000 UNIT/ML 1 ML VIAL SQ SCH ×2 (08:25→16:26)
[2018-11-10] MEDS: CLINDAMYCIN 600 MG in DEXTROSE 5% IN WATER 50 ML IVPB SCH ×4 (08:33→16:26)
[2018-11-10] MEDS: VANCOMYCIN 2,000 MG in SODIUM CHLORIDE 0.9% 500 ML 500 ML IVPB SCH ×2 (09:46→21:22)
--- NOTE | 2018-11-10 12:25 | P.PN ---
Subjective Progress Note Date: 11/10/18 CHIEF COMPLAINT: neck pain HISTORY OF PRESENT ILLNESS: Patient examined at the bedside. Patient continues to complain of pain. Infectious disease is following. He remains on antibiotics. PHYSICAL EXAM: VITAL SIGNS: Currently stable. GENERAL: Well-developed in no acute distress. HEENT: No sclera icterus. Extraocular movements grossly intact. Moist buccal mucosa. Head is atraumatic, normocephalic. Hears conversational speech. No nasal drainage. NECK: Palpable mass to right side of neck. No erythema. No drainage. CHEST: Non-labored respirations and equal bilateral excursions. CARDIOVASCULAR: Regular rate with regular rhythm. Palpable 2+ radial pulses. ABDOMEN: Soft. Nondistended. MUSCULOSKELETAL: No clubbing, cyanosis or edema. NEUROLOGIC: No focal or lateralizing signs. Cranial nerves II through XII grossly intact. PSYCH: Appropriate affect. Alert and oriented to person, place and time. SKIN: Well perfused. Good skin turgor. ASSESSMENT: 1. Lymphadenopathy. possible soft tissue cellulitis. possible lymphadenitis PLAN: 1. No surgical intervention is advised at this time 2. Continue antibiotics Nurse practitioner note has been reviewed by physician. Signing provider agrees with the documented findings, assessment, and plan of care. Objective - Vital Signs Vital signs: Vital Signs Temp 99.0 F 11/10/18 06:00 Pulse 95 11/10/18 06:00 Resp 18 11/10/18 06:00 BP 121/70 11/10/18 06:00 Pulse Ox 94 L 11/10/18 06:00 Intake & Output 11/09/18 11/10/18 11/10/18 18:59 06:59 18:59 Intake Total 1250 Balance 1250 Intake: Oral 1250 Other: # Voids 2 2 - Labs CBC & Chem 7: 11/09/18 09:06 11/09/18 09:06 Labs: Abnormal Lab Results - Last 24 Hours (Table) 11/08/18 11/09/18 11/09/18 Range/Units 17:17 09:06 12:31 ESR 19 H (0-15) mm/hr POC Glucose (mg/dL) 242 H (75-99) mg/dL Hemoglobin A1c 13.3 H (4.0-6.0) % 01/31/19 01/31/19 02/01/19 Range/Units 17:26 20:38 07:14 ESR (0-15) mm/hr POC Glucose (mg/dL) 213 H 254 H 196 H (75-99) mg/dL Hemoglobin A1c (4.0-6.0) % Microbiology - Last 24 Hours (Table) 11/08/18 17:17 Blood Culture - Preliminary Blood No Growth after 24 hours
[2018-11-10 12:47] LABS: Glucose,Whole Blood 179 mg/dL (75-99)
--- NOTE | 2018-11-10 15:45 | P.PN ---
Subjective Progress Note Date: 11/10/18 The patient is a 38-year-old male with a PMH of diabetes mellitus who presented to the ED for severe right-sided neck pain. The patient initially noted a small knot 3 days prior and thought it might of been an insect bite. The lesion however gradually increased and caused pain with range of motion though he had no fever or chills. The patient notes that several years ago he had a similar instance of swollen nodes on the left side of his neck at which time he had a biopsy which showed reactive nodes. The patient had a computed tomography scan of the neck in the ED which showed likely cellulitis with inflammatory changes in the subcutaneous tissue along with multiple reactive lymph nodes. The patient was admitted to the medicine service for sepsis secondary to cellulitis and suspected abscess with reactive lymph nodes. He was started on IV antibiotics and surgery was consulted, and recommended no surgical intervention with lymphadenopathy and possible lymphadenitis. Infectious disease was consulted and recommended IV clindamycin along with vancomycin. The patient was seen and examined the bedside. He notes that his pain is somewhat improved though he continues to have limited range of motion along with swelling of the region. He denied fever, chills, headache, visual disturbances, RUE weakness, chest pain, shortness of breath, nausea, or vomiting. Objective - Vital Signs Vital signs: Vital Signs Temp 99.1 F 11/10/18 15:00 Pulse 92 11/10/18 15:00 Resp 16 11/10/18 15:00 BP 129/82 11/10/18 15:00 Pulse Ox 94 L 11/10/18 15:00 Intake & Output 11/09/18 11/10/18 11/10/18 18:59 06:59 18:59 Intake Total 1250 200 Balance 1250 200 Weight 113.852 kg Intake: Oral 1250 200 Other: Voiding Method Toilet # Voids 2 2 2 # Bowel Movements 1 - Exam General: Non-toxic, in no acute distress, appears stated age, obese HEENT: Right-sided neck palpable mass, mild erythema and tenderness, anicteric sclerae, moist conjunctiva, no lid-lag, PERRLA, poor dentition Cardiovascular: S1/S2 wnl, no murmurs, rubs, or gallops Lungs: Clear to auscultation, normal respiratory effort, no accessory muscle use Abdominal: Soft, non-tender, non-distended, no guarding, rebound, or rigidity Skin: Warm, dry Extremities: No edema or contractures Psychiatric: Alert and oriented to person, place and time, appropriate affect Neuro: CN II-XII grossly intact, Strength 5/5 in all 4 extremities, Speech intact, Sensation to light touch grossly intact throughout - Labs CBC & Chem 7: 11/09/18 09:06 11/09/18 09:06 Labs: Abnormal Lab Results - Last 24 Hours (Table) 11/08/18 11/09/18 11/09/18 Range/Units 17:17 09:06 17:26 ESR 19 H (0-15) mm/hr POC Glucose (mg/dL) 213 H (75-99) mg/dL Hemoglobin A1c 13.3 H (4.0-6.0) % 11/09/18 11/10/18 11/10/18 Range/Units 20:38 07:14 12:41 ESR (0-15) mm/hr POC Glucose (mg/dL) 254 H 196 H 179 H (75-99) mg/dL Hemoglobin A1c (4.0-6.0) % Microbiology - Last 24 Hours (Table) 11/08/18 17:17 Blood Culture - Preliminary Blood No Growth after 24 hours Assessment and Plan Plan: Sepsis secondary to skin abscess w/ reactive lymph nodes -Continue with IV clindamycin and Vancomycin as per ID recommendations -General surgery recommendations appreciated -Pain control with Toradol -Continue with IV fluids with normal saline 100 mL an hour Diabetes mellitus with Hyperglycemia -TITUS with FS -A1C 13.3 -Patient will need testing supplies and insulin upon discharge -Start Levemir 10 U qhs DVT//GI prophylaxis -Heparin -Protonix Discussed with: Patient Anticipated discharge date: 11/12/[address]: home A total of 30 minutes was spent on the care of this complex patient more than 50 % of the time was spent in counseling and care coordination.
[2018-11-10] MEDS ORDERED: MORPHINE SULFATE 2 MG/ML SYRINGE IVP STA (16:33)
[2018-11-10 17:44] LABS: Glucose,Whole Blood 195 mg/dL (75-99)
[2018-11-10 17:59] LABS: Protein, Total 4.8 g/dL (6.2-8.2); Rheumatoid Factor 11 IU/mL (0-15)
[2018-11-10] MEDS ORDERED: ONDANSETRON 4 MG/2 ML VIAL IVP PRN (18:35)
[2018-11-10] MEDS: ACETAMINOPHEN TAB 325 MG TAB PO PRN (18:42)
[2018-11-10 18:58] LABS: HCT 37.3 % (39.0-53.0); HGB 13.1 gm/dL (13.0-17.5); MCH 29.8 pg (25.0-35.0); MCHC 35.1 g/dL (31.0-37.0); MCV 84.9 fL (80.0-100.0); Mean Platelet Volume 9.1; Platelet Count 208 k/uL (150-450); RBC 4.39 m/uL (4.30-5.90); RDW 12.8 % (11.5-15.5); WBC 11.4 k/uL (3.8-10.6)
[2018-11-10 19:13] LABS: Anion Gap 7 mmol/L; Blood Urea Nitrogen 9 mg/dL (9-20); Calcium 7.8 mg/dL (8.4-10.2); Carbon Dioxide 23 mmol/L (22-30); Chloride 107 mmol/L (98-107); Glucose 189 mg/dL (74-99); Potassium 3.1 mmol/L (3.5-5.1); Sodium 137 mmol/L (137-145)
[2018-11-10 20:50] LABS: Glucose,Whole Blood 164 mg/dL (75-99)
[2018-11-10] MEDS: INSULIN DETEMIR (LEVEMIR) 100 UNIT/ML SYR SQ SCH (23:53)
[2018-11-11] MEDS: CLINDAMYCIN 600 MG in DEXTROSE 5% IN WATER 50 ML IVPB SCH ×6 (01:18→15:45)
[2018-11-11] MEDS: HEPARIN SODIUM,PORCINE 5,000 UNIT/ML 1 ML VIAL SQ SCH ×3 (01:21→15:42)
[2018-11-11] MEDS: KETOROLAC 30 MG/ML 1 ML VIAL IVP SCH ×4 (01:21→17:31)
[2018-11-11] MEDS: diphenhydrAMINE 50 MG CAP PO PRN ×2 (02:18→21:04)
[2018-11-11] MEDS: SODIUM CHLORIDE 0.9% 1,000 ML IV SCH ×2 (06:41→14:23)
--- NOTE | 2018-11-11 06:46 | PN ---
PROGRESS NOTE DATE OF SERVICE: 11/10/2018 REASON FOR FOLLOWUP: Right-sided neck cellulitis with lymphadenopathy INTERVAL HISTORY: The patient is currently afebrile, has been breathing comfortably. To the right side of the neck area has slightly decreased ( ). Denies having any chest pain. No abdominal pain, no diarrhea. PHYSICAL EXAMINATION: Blood pressure is 129/88 with a pulse of 92, temperature of 99.1, he is 94% on room air. GENERAL DESCRIPTION: A middle-aged male lying in bed in no distress. HEENT: Examination the right-sided neck area still has some swelling, induration and tenderness but no fluctuation. LUNGS: Unlabored breathing. Clear to auscultation anteriorly. HEART: S1, S2. Regular rate and rhythm. ABDOMEN: Soft. No tenderness. LABS: Blood culture has been negative so far. DIAGNOSTIC IMPRESSION AND PLAN: Patient with right-sided neck cellulitis with underlying lymphadenopathy. The patient's white count has improved and fever has resolved. Will continue clindamycin and the vancomycin. Need to review of the CT with the radiologist if can be done, a CT- guided drainage both for aspirate and cultures. Continue supportive care. MMODL / IJN: [id number] /
[2018-11-11 07:27] LABS: Glucose,Whole Blood 131 mg/dL (75-99)
[2018-11-11] MEDS: PANTOPRAZOLE 40 MG TABLET PO SCH (08:00)
[2018-11-11] MEDS: INSULIN ASPART (NovoLOG) 100 UNIT/ML VIAL SQ SCH ×4 (08:00→21:35)
[2018-11-11 08:02] LABS: HCT 39.1 % (39.0-53.0); HGB 13.1 gm/dL (13.0-17.5); MCH 28.7 pg (25.0-35.0); MCHC 33.7 g/dL (31.0-37.0); MCV 85.3 fL (80.0-100.0); Mean Platelet Volume 8.1; Platelet Count 222 k/uL (150-450); RBC 4.58 m/uL (4.30-5.90); RDW 12.9 % (11.5-15.5); WBC 10.9 k/uL (3.8-10.6)
[2018-11-11 08:15] LABS: Anion Gap 7 mmol/L; Blood Urea Nitrogen 9 mg/dL (9-20); Calcium 8.1 mg/dL (8.4-10.2); Carbon Dioxide 25 mmol/L (22-30); Chloride 108 mmol/L (98-107); Glucose 138 mg/dL (74-99); Potassium 3.2 mmol/L (3.5-5.1); Sodium 140 mmol/L (137-145)
[2018-11-11] MEDS: VANCOMYCIN 2,000 MG in SODIUM CHLORIDE 0.9% 500 ML 500 ML IVPB SCH ×2 (08:57→21:04)
[2018-11-11 12:34] LABS: Glucose,Whole Blood 167 mg/dL (75-99)
--- NOTE | 2018-11-11 15:35 | P.PN ---
Subjective Progress Note Date: 11/11/18 The patient is a 38-year-old male with a PMH of diabetes mellitus who presented to the ED for severe right-sided neck pain. The patient initially noted a small knot 3 days prior and thought it might of been an insect bite. The lesion however gradually increased and caused pain with range of motion though he had no fever or chills. The patient notes that several years ago he had a similar instance of swollen nodes on the left side of his neck at which time he had a biopsy which showed reactive nodes. The patient had a computed tomography scan of the neck in the ED which showed likely cellulitis with inflammatory changes in the subcutaneous tissue along with multiple reactive lymph nodes. The patient was admitted to the medicine service for sepsis secondary to cellulitis and suspected abscess with reactive lymph nodes. He was started on IV antibiotics and surgery was consulted, and recommended no surgical intervention with lymphadenopathy and possible lymphadenitis. Infectious disease was consulted and recommended IV clindamycin along with vancomycin. The patient was seen and examined the bedside. He notes his pain has not improved since yesterday and he had an episode of fever overnight. He denied chest pain, shortness of breath, dizziness, headache, nausea, vomiting, right arm weakness, numbness, or tingling. Objective - Vital Signs Vital signs: Vital Signs Temp 99.6 F 11/11/18 07:00 Pulse 86 11/11/18 07:00 Resp 16 11/11/18 07:00 BP 124/72 11/11/18 07:00 Pulse Ox 91 L 11/11/18 07:00 Intake & Output 11/10/18 11/11/18 11/11/18 18:59 06:59 18:59 Intake Total 200 320 Balance 200 320 Weight 113.852 kg Intake: Oral 200 320 Other: Voiding Method Toilet Toilet # Voids 2 1 # Bowel Movements 1 - Exam General: Non-toxic, in no acute distress, appears stated age, obese HEENT: Right-sided neck indurated and erythematous skin w/ tenderness, no fluctuation, anicteric sclerae, moist conjunctiva, no lid-lag, PERRLA, poor dentition Cardiovascular: S1/S2 wnl, no murmurs, rubs, or gallops Lungs: Clear to auscultation, normal respiratory effort, no accessory muscle use Abdominal: Soft, non-tender, non-distended, no guarding, rebound, or rigidity Skin: Warm, dry Extremities: No edema or contractures Psychiatric: Alert and oriented to person, place and time, appropriate affect Neuro: CN II-XII grossly intact, Strength 5/5 in all 4 extremities, Speech intact, Sensation to light touch grossly intact throughout - Labs CBC & Chem 7: 11/11/18 07:40 11/11/18 07:40 Labs: Abnormal Lab Results - Last 24 Hours (Table) 11/10/18 11/10/18 11/10/18 Range/Units 11:28 17:19 18:48 WBC 11.4 H (3.8-10.6) k/uL Hct 37.3 L (39.0-53.0) % Potassium (3.5-5.1) mmol/L Chloride (98-107) mmol/L Creatinine (0.66-1.25) mg/dL Glucose (74-99) mg/dL POC Glucose (mg/dL) 195 H (75-99) mg/dL Calcium (8.4-10.2) mg/dL Total Protein (PEP) 4.8 L (6.2-8.2) g/dL 11/10/18 11/10/18 11/11/18 Range/Units 18:48 20:49 07:20 WBC (3.8-10.6) k/uL Hct (39.0-53.0) % Potassium 3.1 L (3.5-5.1) mmol/L Chloride (98-107) mmol/L Creatinine 0.61 L (0.66-1.25) mg/dL Glucose 189 H (74-99) mg/dL POC Glucose (mg/dL) 164 H 131 H (75-99) mg/dL Calcium 7.8 L (8.4-10.2) mg/dL Total Protein (PEP) (6.2-8.2) g/dL 11/11/18 11/11/18 11/11/18 Range/Units 07:40 07:40 12:32 WBC 10.9 H (3.8-10.6) k/uL Hct (39.0-53.0) % Potassium 3.2 L (3.5-5.1) mmol/L Chloride 108 H (98-107) mmol/L Creatinine 0.65 L (0.66-1.25) mg/dL Glucose 138 H (74-99) mg/dL POC Glucose (mg/dL) 167 H (75-99) mg/dL Calcium 8.1 L (8.4-10.2) mg/dL Total Protein (PEP) (6.2-8.2) g/dL Microbiology - Last 24 Hours (Table) 11/08/18 17:17 Blood Culture - Preliminary Blood No Growth after 48 hours Assessment and Plan Plan: Sepsis secondary to cellulitis w/ reactive lymph nodes; discussed with radiology , no abscess on prior neck CT, patient may benefit from LN bx, likely for Tuesday -Continue with IV clindamycin and Vancomycin as per ID recommendations -Pain control with Toradol -Continue with IV fluids with normal saline 100 mL an hour Diabetes mellitus with Hyperglycemia -TITUS with FS -A1C 13.3 -Patient will need testing supplies and insulin upon discharge -C/w Levemir 10 U qhs DVT//GI prophylaxis -Heparin -Protonix Discussed with: Patient Anticipated discharge date: 11/14/[address]: home A total of 30 minutes was spent on the care of this complex patient more than 50 % of the time was spent in counseling and care coordination.
--- NOTE | 2018-11-11 16:04 | P.PN ---
Subjective Progress Note Date: 11/11/18 CHIEF COMPLAINT: Neck lymphadenopathy HISTORY OF PRESENT ILLNESS: The patient is a 38-year-old male presents with new right neck swelling. He reports similar episode along the left that resolved on its own. Since admission, patient reports more swelling to the left neck. PHYSICAL EXAM: VITAL SIGNS: Reviewed GENERAL: Well-developed in no acute distress. HEENT: No sclera icterus. Extraocular movements grossly intact. Moist buccal mucosa. Head is atraumatic, normocephalic. Hears conversational speech. NECK: Area very firm over 5 - 6 cm area with mild induration along right neck/ shoulder. CHEST: Non-labored respirations and equal bilateral excursions. CARDIOVASCULAR: Palpable 2+ radial pulses. Regular rate and regular rhythm ABDOMEN: Soft. Non-distended. Incisions are clean dry and intact. MUSCULOSKELETAL: No clubbing, cyanosis. No edema. NEUROLOGIC: No focal or lateralizing signs. Cranial nerves II through XII grossly intact. PSYCH: Appropriate affect. Alert and oriented to person, place and time. SKIN: Well perfused. Good skin turgor. LABS: Reviewed STUDIES: Reviewed ASSESSMENT: 1. Right neck lymphadenopathy PLAN: 1. Recommend repeat CT neck with IV contrast with increased size of mass. 2. May need IR drainage for any developed abscess. Objective - Vital Signs Vital signs: Vital Signs Temp 98.1 F 11/11/18 15:00 Pulse 84 11/11/18 15:00 Resp 20 11/11/18 15:00 BP 112/72 11/11/18 15:00 Pulse Ox 91 L 11/11/18 15:00 Intake & Output 11/10/18 11/11/18 11/11/18 18:59 06:59 18:59 Intake Total 200 520 Balance 200 520 Weight 113.852 kg Intake: Oral 200 520 Other: Voiding Method Toilet Toilet # Voids 2 1 1 # Bowel Movements 1 - Labs CBC & Chem 7: 11/11/18 07:40 11/11/18 07:40 Labs: Abnormal Lab Results - Last 24 Hours (Table) 11/10/18 11/10/18 11/10/18 Range/Units 11:28 17:19 18:48 WBC 11.4 H (3.8-10.6) k/uL Hct 37.3 L (39.0-53.0) % Potassium (3.5-5.1) mmol/L Chloride (98-107) mmol/L Creatinine (0.66-1.25) mg/dL Glucose (74-99) mg/dL POC Glucose (mg/dL) 195 H (75-99) mg/dL Calcium (8.4-10.2) mg/dL Total Protein (PEP) 4.8 L (6.2-8.2) g/dL 11/10/18 11/10/18 11/11/18 Range/Units 18:48 20:49 07:20 WBC (3.8-10.6) k/uL Hct (39.0-53.0) % Potassium 3.1 L (3.5-5.1) mmol/L Chloride (98-107) mmol/L Creatinine 0.61 L (0.66-1.25) mg/dL Glucose 189 H (74-99) mg/dL POC Glucose (mg/dL) 164 H 131 H (75-99) mg/dL Calcium 7.8 L (8.4-10.2) mg/dL Total Protein (PEP) (6.2-8.2) g/dL 11/11/18 11/11/18 11/11/18 Range/Units 07:40 07:40 12:32 WBC 10.9 H (3.8-10.6) k/uL Hct (39.0-53.0) % Potassium 3.2 L (3.5-5.1) mmol/L Chloride 108 H (98-107) mmol/L Creatinine 0.65 L (0.66-1.25) mg/dL Glucose 138 H (74-99) mg/dL POC Glucose (mg/dL) 167 H (75-99) mg/dL Calcium 8.1 L (8.4-10.2) mg/dL Total Protein (PEP) (6.2-8.2) g/dL Microbiology - Last 24 Hours (Table) 11/08/18 17:17 Blood Culture - Preliminary Blood No Growth after 48 hours - Imaging and Cardiology CT Scan - head: report reviewed, image reviewed (CT neck shows large lymphnode along the right neck) Assessment and Plan (1) Cellulitis Current Visit: Yes Status: Acute Code(s): L03.90 - CELLULITIS, UNSPECIFIED SNOMED Code(s): 079367299 (2) Diabetes mellitus Current Visit: Yes Status: Acute Code(s): E11.9 - TYPE 2 DIABETES MELLITUS WITHOUT COMPLICATIONS SNOMED Code(s): 63142646 (3) Lymphadenopathy Current Visit: Yes Status: Acute Code(s): R59.1 - GENERALIZED ENLARGED LYMPH NODES SNOMED Code(s): 41444335 (4) Smoker Current Visit: Yes Status: Acute Code(s): F17.200 - NICOTINE DEPENDENCE, UNSPECIFIED, UNCOMPLICATED SNOMED Code(s): 70388240
--- NOTE | 2018-11-11 16:57 | CT ---
EXAMINATION TYPE: CT neck chest w con DATE OF EXAM: 11/11/2018 COMPARISON: CT neck November 08, 2018. CT chest November 09, 2018. HISTORY: Worsening pain and inflammation, possible neck abscess. CT DLP: 1830.4 mGycm. Automated Exposure Control for Dose Reduction was Utilized. TECHNIQUE: CT scan of the neck and thorax are performed following with IV Contrast, patient injected with 100 mL of Isovue 300. FINDINGS: NECK: Rounded low dense lesion left posterior cervical triangle measuring 1.9 x 1.5 cm axial image 50 is redemonstrated without surrounding fat stranding, possible low dense lymph node. In the right nec k posterior cervical triangle region there is moderate to severe ill-defined fluid and fat stranding more prominent from prior study with blurring of fat planes involving the right lateral spinous muscl es with heterogeneous poorly defined oval lesions felt diminished in size from prior. An anterior rim enhancing 1.4 x 0.9 cm lesion is seen axial image 51 slightly smaller from prior study image 52. The re is expansion and ill-definition of adjacent muscles noted. Airway remains patent. Salivary glands are unremarkable. Thyroid gland is within normal limits. There is stable 1.2 cm mucous retention cyst or polyp in the anterior inferior right maxillary sinus axial image 73. Interval improving right lateral mucosal thickening is noted. THORAX: LUNGS: There is new small right pleural effusion and small to tiny left pleural effusion. There are n ew dependent opacities favoring atelectasis and/or Limited consolidation, right greater than left. No pneumothorax is seen bilaterally. Tracheobronchial tree is patent. MEDIASTINUM: There are no greater than 1 cm hilar or mediastinal lymph nodes. No cardiomegaly or p ericardial effusion is seen. OTHER: There is heterogeneous slightly expansile 4.4 cm left hepatic lobe liver lesion with periphera l nodularity favoring hemangioma axial image 56. This is fairly stable in size from [address] where shows central filling. Splenomegaly is redemonstrated measuring 16.9 cm long axis axial image 26. Dextroconvex scoliosis centered in the mid to lower thoracic spine is redemonstrated. Mild to mod erate multilevel anterior lateral spurring in the thoracic spine is again seen. IMPRESSION: 1. Worsening diffuse inflammatory change in the right lower neck. Improving in size and number of rou nd lesion suggesting improving low dense adenopathy and/or resolving abscesses centrally within the i nflammation. Reactive myositis is redemonstrated and more prominent. 2. New small to tiny greater left pleural effusions. Cannot exclude developing posterior infiltrates bilaterally, right worse than left. Correlate clinically.
[2018-11-11 17:23] LABS: Glucose,Whole Blood 134 mg/dL (75-99)
[2018-11-11] MEDS: CEFEPIME 2 GM in SODIUM CHLORIDE 0.9% 50 ML IVPB SCH (17:30)
[2018-11-11 21:32] LABS: Glucose,Whole Blood 117 mg/dL (75-99)
[2018-11-12] MEDS: KETOROLAC 30 MG/ML 1 ML VIAL IVP SCH ×4 (00:11→18:05)
[2018-11-12] MEDS: HEPARIN SODIUM,PORCINE 5,000 UNIT/ML 1 ML VIAL SQ SCH ×4 (00:12→23:17)
[2018-11-12] MEDS: INSULIN DETEMIR (LEVEMIR) 100 UNIT/ML SYR SQ SCH ×2 (00:12→20:58)
[2018-11-12 00:20] LABS: Glucose,Whole Blood 166 mg/dL (75-99)
--- NOTE | 2018-11-12 02:10 | PN ---
PROGRESS NOTE DATE OF SERVICE: 11/11/2018. REASON FOR FOLLOWUP: Right upper neck area cellulitis with lymphadenitis. INTERVAL HISTORY: The patient is afebrile. The patient did spike a fever of 101 degrees. The mention that he did have soreness in the upper right side of the neck area and examined yesterday. The patient denies any difficulty breathing. Denies having any chest pain. No shortness of breath. No cough. No abdominal pain. No diarrhea. PHYSICAL EXAMINATION: Blood pressure 112/72 with a pulse of 84, temperature 98.1. T-max 101. He is 91% on room air. General description is a middle-aged male lying in bed in no distress. HEENT examination: Right upper neck area did have some redness, slightly decreased from yesterday. Lungs: Unlabored breathing. Clear to auscultation anteriorly. Heart S1, S2. Regular rate and rhythm. Abdomen is soft. No tenderness. LABORATORY DATA: Hemoglobin 13.1, white count 10.9, BUN of 9, creatinine 0.65, blood culture has been negative. DIAGNOSTIC IMPRESSION AND PLAN: Patient admitted to the hospital with a fever with pain to the right upper side of the neck area. The patient CT was reviewed with radiologist, did show significant inflammatory changes in the surrounding muscle area in addition to the left . We will discontinue the clindamycin and cefepime 2 g q.12h. Continue with vancomycin. Repeat CT on Tuesday and if still has significant inflammatory changes will request a CT- guided aspirate of this area, both for histopathology and cultures. Questions and concerns were answered. Continue supportive care. MMODL / IJN: [id number] /
[2018-11-12] MEDS: SODIUM CHLORIDE 0.9% 1,000 ML IV SCH ×3 (05:35→22:27)
[2018-11-12] MEDS: CEFEPIME 2 GM in SODIUM CHLORIDE 0.9% 50 ML IVPB SCH ×2 (06:04→18:06)
[2018-11-12 07:18] LABS: Glucose,Whole Blood 169 mg/dL (75-99)
[2018-11-12] MEDS: PANTOPRAZOLE 40 MG TABLET PO SCH (07:57)
[2018-11-12] MEDS: INSULIN ASPART (NovoLOG) 100 UNIT/ML VIAL SQ SCH ×4 (07:57→20:59)
[2018-11-12] MEDS ORDERED: VANCOMYCIN TROUGH DUE 1 EACH MISC MISCELLANE ONE (08:00)
[2018-11-12 09:25] LABS: HCT 37.5 % (39.0-53.0); HGB 12.2 gm/dL (13.0-17.5); MCH 27.3 pg (25.0-35.0); MCHC 32.6 g/dL (31.0-37.0); MCV 83.7 fL (80.0-100.0); Mean Platelet Volume 9.5; Platelet Count 221 k/uL (150-450); RBC 4.48 m/uL (4.30-5.90); WBC 7.3 k/uL (3.8-10.6)
[2018-11-12] MEDS: VANCOMYCIN 2,000 MG in SODIUM CHLORIDE 0.9% 500 ML 500 ML IVPB SCH (09:35)
[2018-11-12] MEDS ORDERED: POTASSIUM CHLORIDE ER 20 MEQ TAB.ER PO STA (10:46)
[2018-11-12 11:53] LABS: Glucose,Whole Blood 231 mg/dL (75-99)
[2018-11-12] MEDS: VANCOMYCIN 1,750 MG in SODIUM CHLORIDE 0.9% 500 ML 500 ML IVPB SCH ×2 (14:59→23:15)
[2018-11-12 17:22] LABS: Glucose,Whole Blood 187 mg/dL (75-99)
--- NOTE | 2018-11-12 18:17 | P.PN ---
Subjective Progress Note Date: 11/12/18 The patient is a 38-year-old male with a PMH of diabetes mellitus who presented to the ED for severe right-sided neck pain. The patient initially noted a small knot 3 days prior and thought it might of been an insect bite. The lesion however gradually increased and caused pain with range of motion though he had no fever or chills. The patient notes that several years ago he had a similar instance of swollen nodes on the left side of his neck at which time he had a biopsy which showed reactive nodes. The patient had a computed tomography scan of the neck in the ED which showed likely cellulitis with inflammatory changes in the subcutaneous tissue along with multiple reactive lymph nodes. The patient was admitted to the medicine service for sepsis secondary to cellulitis with reactive lymph nodes. He was started on IV antibiotics and surgery was consulted, and recommended no surgical intervention with lymphadenopathy and possible lymphadenitis. Infectious disease was consulted and recommended clindamycin and vancomycin. ID subsequently recommended discontinuing the clindamycin and continuing with cefepime and vancomycin. A repeat CT neck was performed which revealed worsening diffuse inflammatory change in the neck w/ improving adenopathy and/or resolving abscess. Patient was seen and examined at the bedside. He notes that his neck pain is improved along with improved range of motion. He denied any additional episodes of fever or chills. He further denied chest pain, shortness of breath , nausea, or vomiting. Objective - Vital Signs Vital signs: Vital Signs Temp 98.7 F 11/12/18 14:47 Pulse 77 11/12/18 14:47 Resp 18 11/12/18 14:47 BP 139/89 11/12/18 14:47 Pulse Ox 95 11/12/18 14:47 Intake & Output 11/11/18 11/12/18 11/12/18 18:59 06:59 18:59 Intake Total 520 900 Balance 520 900 Intake: Oral 520 900 Other: Voiding Method Toilet # Voids 1 1 4 - Exam General: Non-toxic, in no acute distress, appears stated age, obese HEENT: Right-sided neck indurated skin w/ tenderness, no fluctuation, mildly erythematous, anicteric sclerae, moist conjunctiva, no lid-lag, PERRLA, poor dentition Cardiovascular: S1/S2 wnl, no murmurs, rubs, or gallops Lungs: Clear to auscultation, normal respiratory effort, no accessory muscle use Abdominal: Soft, non-tender, non-distended, no guarding, rebound, or rigidity Skin: Warm, dry Extremities: No edema or contractures Psychiatric: Alert and oriented to person, place and time, appropriate affect Neuro: CN II-XII grossly intact, Strength 5/5 in all 4 extremities, Speech intact, Sensation to light touch grossly intact throughout - Labs CBC & Chem 7: 11/12/18 09:17 11/11/18 07:40 Labs: Abnormal Lab Results - Last 24 Hours (Table) 11/11/18 11/12/18 11/12/18 Range/Units 21:26 00:15 07:13 Hgb (13.0-17.5) gm/dL Hct (39.0-53.0) % POC Glucose (mg/dL) 117 H 166 H 169 H (75-99) mg/dL 11/12/18 11/12/18 11/12/18 Range/Units 09:17 11:41 17:20 Hgb 12.2 L (13.0-17.5) gm/dL Hct 37.5 L (39.0-53.0) % POC Glucose (mg/dL) 231 H 187 H (75-99) mg/dL Microbiology - Last 24 Hours (Table) 11/08/18 17:17 Blood Culture - Preliminary Blood No Growth after 72 hours Assessment and Plan Plan: Cellulitis w/ reactive lymph nodes, possible abscess -Continue with IV Cefepime and Vancomycin as per ID recommendations -Awaiting further surgery recommendations. Will discuss with IR for possible drainage vs LN bx on Tuesday -Pain control with Toradol -Continue with IV fluids with normal saline 100 mL an hour Diabetes mellitus with Hyperglycemia -TITUS with FS -A1C 13.3 -Patient will need testing supplies and insulin upon discharge -C/w Levemir 10 U qhs DVT//GI prophylaxis -Heparin -Protonix Discussed with: Patient Anticipated discharge date: 11/14/[address]: home A total of 30 minutes was spent on the care of this complex patient more than 50 % of the time was spent in counseling and care coordination.
[2018-11-12 20:29] LABS: Glucose,Whole Blood 184 mg/dL (75-99)
[2018-11-12] MEDS: diphenhydrAMINE 50 MG CAP PO PRN (20:58)
--- NOTE | 2018-11-13 00:11 | PN ---
PROGRESS NOTE DATE OF SERVICE: 11/12/2018. REASON FOR FOLLOWUP: Right-sided neck cellulitis and lymphadenitis. INTERVAL HISTORY: The patient is currently afebrile. He has been breathing comfortably. Pain to the right neck is slightly decreased. Some minimal redness. No chest pain. No abdominal pain. No diarrhea. PHYSICAL EXAMINATION: Blood pressure is 139/89 with a pulse of 77, temperature 98.7. He is 95% on room air. General description is a middle aged male up in the chair in no distress. HEENT examination: The right side of the neck swelling and redness slightly decreased. LUNGS: Unlabored breathing. Clear to auscultation anteriorly. Heart S1, S2. Regular rate and rhythm. ABDOMEN: Soft. No tenderness. LABS: Hemoglobin 12.2, white count 7.3. Repeat CT completed yesterday did show slight worsening of inflammatory changes. DIAGNOSTIC IMPRESSION AND PLAN: Patient with right-sided neck cellulitis with lymphadenitis with some worsening that has been noticed on the recent CT. We will request a CT-guided aspirate of this area for culture as well as histopathology. Continue with cefepime and vancomycin in view of the will benefit from the Mid line and outpatient IV antibiotics. We will discuss further with the rn case mgr. Continue supportive care. MMODL / IJN: [id number] /
[2018-11-13] MEDS ORDERED: KETOROLAC 30 MG/ML 1 ML VIAL IVP STA (00:49)
[2018-11-13] MEDS: SODIUM CHLORIDE 0.9% 1,000 ML IV SCH ×2 (05:36→15:05)
[2018-11-13] MEDS: CEFEPIME 2 GM in SODIUM CHLORIDE 0.9% 50 ML IVPB SCH ×2 (05:36→18:23)
[2018-11-13 07:12] LABS: Glucose,Whole Blood 140 mg/dL (75-99)
[2018-11-13 07:43] LABS: HCT 36.9 % (39.0-53.0); HGB 12.2 gm/dL (13.0-17.5); MCHC 33.1 g/dL (31.0-37.0); MCV 84.5 fL (80.0-100.0); Mean Platelet Volume 8.4; Platelet Count 250 k/uL (150-450); RBC 4.36 m/uL (4.30-5.90); RDW 12.9 % (11.5-15.5); WBC 7.9 k/uL (3.8-10.6)
[2018-11-13] MEDS: PANTOPRAZOLE 40 MG TABLET PO SCH (07:49)
[2018-11-13] MEDS: VANCOMYCIN 1,750 MG in SODIUM CHLORIDE 0.9% 500 ML 500 ML IVPB SCH ×3 (07:49→23:47)
[2018-11-13] MEDS: HEPARIN SODIUM,PORCINE 5,000 UNIT/ML 1 ML VIAL SQ SCH ×3 (07:50→23:47)
[2018-11-13] MEDS: INSULIN ASPART (NovoLOG) 100 UNIT/ML VIAL SQ SCH ×4 (07:50→21:01)
[2018-11-13 07:51] LABS: Anion Gap 6 mmol/L; Blood Urea Nitrogen 10 mg/dL (9-20); Calcium 8.2 mg/dL (8.4-10.2); Carbon Dioxide 25 mmol/L (22-30); Chloride 109 mmol/L (98-107); Glucose 145 mg/dL (74-99); Potassium 3.5 mmol/L (3.5-5.1); Sodium 140 mmol/L (137-145)
[2018-11-13 09:11] LABS: INR 0.9 (<1.2)
[2018-11-13] MEDS ORDERED: MORPHINE SULFATE 4 MG/ML SYRINGE IVP PRN (11:09)
[2018-11-13] MEDS: MORPHINE SULFATE 4 MG/ML SYRINGE IVP PRN ×3 (11:15→20:46)
[2018-11-13] MEDS ORDERED: KETOROLAC 30 MG/ML 1 ML VIAL IVP SCH (12:00)
--- NOTE | 2018-11-13 12:13 | P.PN ---
Subjective Progress Note Date: 11/13/18 CHIEF COMPLAINT: neck pain HISTORY OF PRESENT ILLNESS: Patient examined at the bedside. Patient continues to complain of pain. Infectious disease is following. He remains on antibiotics. PHYSICAL EXAM: VITAL SIGNS: Currently stable. GENERAL: Well-developed in no acute distress. HEENT: No sclera icterus. Extraocular movements grossly intact. Moist buccal mucosa. Head is atraumatic, normocephalic. Hears conversational speech. No nasal drainage. NECK: Palpable mass to right side of neck with erythema. No drainage. CHEST: Non-labored respirations and equal bilateral excursions. CARDIOVASCULAR: Regular rate with regular rhythm. Palpable 2+ radial pulses. ABDOMEN: Soft. Nondistended. MUSCULOSKELETAL: No clubbing, cyanosis or edema. NEUROLOGIC: No focal or lateralizing signs. Cranial nerves II through XII grossly intact. PSYCH: Appropriate affect. Alert and oriented to person, place and time. SKIN: Well perfused. Good skin turgor. ASSESSMENT: 1. Lymphadenopathy. possible soft tissue cellulitis. possible lymphadenitis PLAN: 1. No surgical intervention is advised at this time 2. Continue antibiotics 3. Pain medication regimen per medicine Nurse practitioner note has been reviewed by physician. Signing provider agrees with the documented findings, assessment, and plan of care. Objective - Vital Signs Vital signs: Vital Signs Temp 98.5 F 11/13/18 06:30 Pulse 71 11/13/18 06:30 Resp 18 11/13/18 06:30 BP 146/87 11/13/18 06:30 Pulse Ox 95 11/13/18 06:30 Intake & Output 11/12/18 11/13/18 11/13/18 18:59 06:59 18:59 Intake Total 1100 Balance 1100 Intake: Oral 1100 Other: Voiding Method Toilet # Voids 4 2 1 # Bowel Movements 1 - Labs CBC & Chem 7: 11/13/18 06:51 11/13/18 06:51 Labs: Abnormal Lab Results - Last 24 Hours (Table) 11/12/18 11/12/18 11/13/18 Range/Units 17:20 20:24 06:51 Hgb 12.2 L (13.0-17.5) gm/dL Hct 36.9 L (39.0-53.0) % Chloride (98-107) mmol/L Glucose (74-99) mg/dL POC Glucose (mg/dL) 187 H 184 H (75-99) mg/dL Calcium (8.4-10.2) mg/dL 11/13/18 11/13/18 Range/Units 06:51 07:07 Hgb (13.0-17.5) gm/dL Hct (39.0-53.0) % Chloride 109 H (98-107) mmol/L Glucose 145 H (74-99) mg/dL POC Glucose (mg/dL) 140 H (75-99) mg/dL Calcium 8.2 L (8.4-10.2) mg/dL Microbiology - Last 24 Hours (Table) 11/08/18 17:17 Blood Culture - Preliminary Blood No Growth after 96 hours
[2018-11-13 12:23] LABS: Glucose,Whole Blood 161 mg/dL (75-99)
[2018-11-13 14:57] LABS: Albumin 2.13 g/dL (3.80-4.90); Gamma Globulin 0.46 g/dL (0.70-1.50)
--- NOTE | 2018-11-13 15:53 | P.PN ---
Subjective Progress Note Date: 11/13/18 (delayed charting patient seen at 1130) Principal diagnosis: leg swelling Patient is a 38-year-old male with no reported past medical history (denies history of diabetes) who presented to the ER with complaints of right-sided neck swelling. In the ER he underwent an extensive evaluation. CT of the neck suggested cellulitis with inflammatory changes in the subcutaneous tissues. Initial laboratory analysis demonstrated a white blood cell count of 15.1, elevated blood sugar, and slight hyponatremia. He was started on IV antibiotics and IV fluids as well as insulin. He is admitted for further monitoring. Hemoglobin A1c came back at 13.3 and he was diagnosed with diabetes and started on insulin therapy. His ESR came back slightly elevated at 19. Infectious disease was consulted and recommended cefepime and vancomycin. Repeat CT of the neck was performed which showed decreasing size of the lymph nodes but no definitive abscess to drain. IRconsulted and stated there is no definitive abscess to drain, reapt CT of the neck showed decrase in size of mass but increase in myositis changes, also demonstrated splenomegally. General surgery had been following the patient and recommended no surgical intervention. ENT consulted for further recommendations. Patient seen and examined at bedside. He states the pain in his back is becoming better with morphine. States that Toradol is helping more. No chest pain, shortness of breath, nausea, or vomiting. States he was not a diabetic prior to admission and had not been monitoring sugars. He is fixated [employer] today. He is also asked for [facility] paperwork to be completed. Objective - Vital Signs Vital signs: Vital Signs Temp 97.5 F L 11/13/18 13:36 Pulse 69 11/13/18 13:36 Resp 18 11/13/18 13:36 BP 138/87 11/13/18 13:36 Pulse Ox 98 11/13/18 13:36 Intake & Output 11/12/18 11/13/18 11/13/18 18:59 06:59 18:59 Intake Total 1100 Balance 1100 Intake: Oral 1100 Other: Voiding Method Toilet # Voids 4 2 1 # Bowel Movements 1 - Exam General: non toxic, no distress, appears at stated age, obese Derm: warm, dry Head: atraumatic, normocephalic, right sided swelling of the supraclavicular area with redness, no warmth or drainage Eyes: EOMI, no lid lag, anicteric sclera Mouth: no lip lesion, mucus membranes moist Cardiovascular: S1S2 reg, no murmur, positive posterior tibial pulse bilateral, Lungs: CTA bilateral, no rhonchi, no rales , no accessory muscle use Abdominal: soft, nontender to palpation, no guarding, no appreciable organomegaly Ext: no gross muscle atrophy, no edema, no contractures Neuro: CN II-XI grossly intact, no focal neuro deficits Psych: Alert, oriented, appropriate affect - Labs CBC & Chem 7: 11/13/18 06:51 11/13/18 06:51 Labs: Abnormal Lab Results - Last 24 Hours (Table) 11/10/18 11/12/18 11/12/18 Range/Units 11:28 17:20 20:24 Hgb (13.0-17.5) gm/dL Hct (39.0-53.0) % Chloride (98-107) mmol/L Glucose (74-99) mg/dL POC Glucose (mg/dL) 187 H 184 H (75-99) mg/dL Calcium (8.4-10.2) mg/dL Albumin (PEP) 2.13 L (3.80-4.90) g/dL Gtqoq-7-Xoblmgtaw 0.49 H (0.10-0.40) g/dL Gamma Globulins 0.46 L (0.70-1.50) g/dL 11/13/18 11/13/18 11/13/18 Range/Units 06:51 06:51 07:07 Hgb 12.2 L (13.0-17.5) gm/dL Hct 36.9 L (39.0-53.0) % Chloride 109 H (98-107) mmol/L Glucose 145 H (74-99) mg/dL POC Glucose (mg/dL) 140 H (75-99) mg/dL Calcium 8.2 L (8.4-10.2) mg/dL Albumin (PEP) (3.80-4.90) g/dL Itxgx-4-Jngyidvmf (0.10-0.40) g/dL Gamma Globulins (0.70-1.50) g/dL 11/13/18 Range/Units 12:19 Hgb (13.0-17.5) gm/dL Hct (39.0-53.0) % Chloride (98-107) mmol/L Glucose (74-99) mg/dL POC Glucose (mg/dL) 161 H (75-99) mg/dL Calcium (8.4-10.2) mg/dL Albumin (PEP) (3.80-4.90) g/dL Wmyzx-7-Mqnlujazv (0.10-0.40) g/dL Gamma Globulins (0.70-1.50) g/dL Microbiology - Last 24 Hours (Table) 11/08/18 17:17 Blood Culture - Preliminary Blood No Growth after 96 hours Assessment and Plan Assessment: Cellulitis of the right neck with possible enlarged lymph nodes versus abscess with sepsis on admission and as demonstrated by pulse and elevated white blood cell count -ID recommendations: Cefepime and vancomycin -Per IR no area for drainage -Consult ENT regarding need for lymph node biopsy -Morphine added for pain control -Continue with IV fluids -Oncology recommendations appreciated: Follow-up needed if persistence of adenopathy despite resolution of soft tissue inflammation., Serum immunofixation, rheumatoid factor, HARSHAL, [place] and lambda negative Diabetes mellitus, newly discovered with hyperglycemia -Patient will be a poor candidate for insulin therapy despite having an A1c of 13.3 due to knowledge of diabetes. After having outpatient diabetic education could consider insulin use. -Avoid metformin until we are sure he will no longer need any contrast dye exposure. -Plan will be to discharge home on metformin and Januvia -Continue with Levemir and sliding scale to inpatient. -Has been seen by dietitian and hematology nurse educator Morbid obesity with BMI 39.3 -Outpatient structured weight loss recommended FMLA paparework completed and returned to patient to sign DVT prophylaxis: Heparin Discussed with: Patient, nursing Anticipated discharge: 2-[address]: Home A total of 35 minutes was spent on the care of this complex patient more than 50 % of the time was spent in counseling and care coordination.
[2018-11-13 17:02] LABS: Glucose,Whole Blood 147 mg/dL (75-99)
[2018-11-13] MEDS: ACETAMINOPHEN TAB 325 MG TAB PO PRN (17:22)
--- NOTE | 2018-11-13 17:48 | P.PN ---
Subjective Progress Note Date: 11/13/18 Principal diagnosis: cervical adenopathy In f/u today pt c/o increased pain in the right neck, the skin is tight, feels hot. Denies fever, drainage from site externally or in the mouth. Objective - Vital Signs Vital signs: Vital Signs Temp 97.5 F L 11/13/18 13:36 Pulse 69 11/13/18 13:36 Resp 18 11/13/18 13:36 BP 138/87 11/13/18 13:36 Pulse Ox 98 11/13/18 13:36 Intake & Output 11/12/18 11/13/18 11/13/18 18:59 06:59 18:59 Intake Total 1100 Balance 1100 Intake: Oral 1100 Other: Voiding Method Toilet # Voids 4 2 1 # Bowel Movements 1 - Constitutional General appearance: Present: average body habitus, no acute distress - EENT EENT Comment(s): Poor dentition with broken teeth - Neck Details: right neck, [place] sized area of firmness, very tender, red, warm - Respiratory Respiratory: bilateral: CTA - Cardiovascular Heart sounds: normal: S1, S2 - Gastrointestinal General gastrointestinal: Present: normal bowel sounds - Integumentary Integumentary Comment(s): see neck - Neurologic Neurologic: Present: CNII-XII intact - Musculoskeletal Musculoskeletal: Present: strength equal bilaterally - Psychiatric Psychiatric: Present: A&O x's 3, appropriate affect, intact judgment & insight - Labs CBC & Chem 7: 11/13/18 06:51 11/13/18 06:51 Labs: Abnormal Lab Results - Last 24 Hours (Table) 11/10/18 11/12/18 11/13/18 Range/Units 11:28 20:24 06:51 Hgb 12.2 L (13.0-17.5) gm/dL Hct 36.9 L (39.0-53.0) % Chloride (98-107) mmol/L Glucose (74-99) mg/dL POC Glucose (mg/dL) 184 H (75-99) mg/dL Calcium (8.4-10.2) mg/dL Albumin (PEP) 2.13 L (3.80-4.90) g/dL Gpags-1-Utisjpobp 0.49 H (0.10-0.40) g/dL Gamma Globulins 0.46 L (0.70-1.50) g/dL 11/13/18 11/13/18 11/13/18 Range/Units 06:51 07:07 12:19 Hgb (13.0-17.5) gm/dL Hct (39.0-53.0) % Chloride 109 H (98-107) mmol/L Glucose 145 H (74-99) mg/dL POC Glucose (mg/dL) 140 H 161 H (75-99) mg/dL Calcium 8.2 L (8.4-10.2) mg/dL Albumin (PEP) (3.80-4.90) g/dL Jqios-6-Mmqtszpff (0.10-0.40) g/dL Gamma Globulins (0.70-1.50) g/dL 11/13/18 Range/Units 16:59 Hgb (13.0-17.5) gm/dL Hct (39.0-53.0) % Chloride (98-107) mmol/L Glucose (74-99) mg/dL POC Glucose (mg/dL) 147 H (75-99) mg/dL Calcium (8.4-10.2) mg/dL Albumin (PEP) (3.80-4.90) g/dL Wvrfz-9-Nfayeemqc (0.10-0.40) g/dL Gamma Globulins (0.70-1.50) g/dL Microbiology - Last 24 Hours (Table) 11/08/18 17:17 Blood Culture - Preliminary Blood No Growth after 96 hours - Imaging and Cardiology CT scan - chest: report reviewed Assessment and Plan (1) Lymphadenopathy Narrative/Plan: Reviewed CT chest with pt, no evidence of adenopathy or mass. Lab work up did not reveal any concerning findings. Suspect this adenopathy is infectious in nature. The site looks very irritated today. Recommended to pt being seen by a Dentist for his caries and broken teeth as infected teeth can cause terrible infections. If pt symptoms persist he may need ENT evaluation Nothing further from Hem/Onc standpoint at this time We will remain available if any changes or new findings. Current Visit: Yes Status: Acute Priority: High Code(s): R59.1 - GENERALIZED ENLARGED LYMPH NODES SNOMED Code(s): 07026225
[2018-11-13] MEDS: INSULIN DETEMIR (LEVEMIR) 100 UNIT/ML SYR SQ SCH (20:45)
[2018-11-13] MEDS: diphenhydrAMINE 50 MG CAP PO PRN (20:45)
[2018-11-13 20:56] LABS: Glucose,Whole Blood 174 mg/dL (75-99)
[2018-11-14] MEDS: ACETAMINOPHEN TAB 325 MG TAB PO PRN (01:41)
[2018-11-14] MEDS: SODIUM CHLORIDE 0.9% 1,000 ML IV SCH ×2 (05:45→12:36)
--- NOTE | 2018-11-14 06:22 | PN ---
PROGRESS NOTE DATE OF SERVICE: 11/13/2018. REASON FOR FOLLOWUP: Right neck cellulitis. INTERVAL HISTORY: The patient is currently afebrile. He has been breathing comfortably. Overall pain to the right side of the neck is slightly decreased. Still painful with movement of the neck. Denies any difficulty swallowing, difficulty breathing, or any cough. PHYSICAL EXAMINATION: On examination, blood pressure 138/87 with a pulse of 69, temperature 97.5. He is 98% on room air. General description is a middle aged male up in the chair in no distress. HEENT EXAMINATION: Right side neck swelling and redness minimally decreased. LUNGS: Unlabored breathing, clear to auscultation anteriorly. HEART: S1, S2. Regular rate and rhythm. ABDOMEN: Soft. No tenderness. LABS: BUN of 10, creatinine 0.66. White count is normal. Blood culture has been negative. DIAGNOSTIC IMPRESSION AND PLAN: Patient with right-sided neck cellulitis with associated lymphadenitis, a CT- guided aspirate of the area was requested. Unfortunately not done as per radiologist there was no fluid to aspirate. The patient to be maintained on cefepime at this time. In view of slow clinical response and cultures being negative, will get a Medline for outpatient IV antibiotic therapy. ENT has been consulted, will await their evaluation. Continue supportive care. MMODL / KLAUSN: [id number] /
[2018-11-14] MEDS: CEFEPIME 2 GM in SODIUM CHLORIDE 0.9% 50 ML IVPB SCH (06:40)
[2018-11-14] MEDS ORDERED: VANCOMYCIN TROUGH DUE 1 EACH MISC MISCELLANE ONE (07:00)
[2018-11-14 07:36] LABS: Glucose,Whole Blood 112 mg/dL (75-99)
[2018-11-14] MEDS: INSULIN ASPART (NovoLOG) 100 UNIT/ML VIAL SQ SCH ×4 (09:16→21:19)
[2018-11-14] MEDS: PANTOPRAZOLE 40 MG TABLET PO SCH (09:17)
[2018-11-14] MEDS: HEPARIN SODIUM,PORCINE 5,000 UNIT/ML 1 ML VIAL SQ SCH ×3 (09:17→22:53)
[2018-11-14] MEDS: VANCOMYCIN 1,750 MG in SODIUM CHLORIDE 0.9% 500 ML 500 ML IVPB SCH (09:42)
--- NOTE | 2018-11-14 11:33 | P.PN ---
Subjective Progress Note Date: 11/14/18 CHIEF COMPLAINT: neck pain HISTORY OF PRESENT ILLNESS: Patient examined at the bedside. Patient continues to complain of pain. Infectious disease is following. He remains on antibiotics. PHYSICAL EXAM: VITAL SIGNS: Currently stable. GENERAL: Well-developed in no acute distress. HEENT: No sclera icterus. Extraocular movements grossly intact. Moist buccal mucosa. Head is atraumatic, normocephalic. Hears conversational speech. No nasal drainage. NECK: Palpable mass to right side of neck with erythema. No drainage. CHEST: Non-labored respirations and equal bilateral excursions. CARDIOVASCULAR: Regular rate with regular rhythm. Palpable 2+ radial pulses. ABDOMEN: Soft. Nondistended. MUSCULOSKELETAL: No clubbing, cyanosis or edema. NEUROLOGIC: No focal or lateralizing signs. Cranial nerves II through XII grossly intact. PSYCH: Appropriate affect. Alert and oriented to person, place and time. SKIN: Well perfused. Good skin turgor. ASSESSMENT: 1. Lymphadenopathy. possible soft tissue cellulitis. possible lymphadenitis PLAN: 1. No surgical intervention is advised at this time 2. Continue antibiotics 3. Pain medication regimen per medicine 4. We will sign off. please reconsult if needed. Nurse practitioner note has been reviewed by physician. Signing provider agrees with the documented findings, assessment, and plan of care. Objective - Vital Signs Vital signs: Vital Signs Temp 97.4 F L 11/14/18 07:00 Pulse 78 11/14/18 07:00 Resp 18 11/14/18 07:00 BP 155/94 11/14/18 07:00 Pulse Ox 94 L 11/14/18 07:00 Intake & Output 11/13/18 11/14/18 11/14/18 18:59 06:59 18:59 Intake Total 1100 Output Total 1 Balance 1099 Intake: Oral 1100 Output: Stool 1 Other: Voiding Method Toilet # Voids 2 2 # Bowel Movements 0 - Labs CBC & Chem 7: 11/13/18 06:51 11/13/18 06:51 Labs: Abnormal Lab Results - Last 24 Hours (Table) 11/10/18 11/13/18 11/13/18 Range/Units 11:28 12:19 16:59 POC Glucose (mg/dL) 161 H 147 H (75-99) mg/dL Albumin (PEP) 2.13 L (3.80-4.90) g/dL Jgsrt-5-Wkuvivtzw 0.49 H (0.10-0.40) g/dL Gamma Globulins 0.46 L (0.70-1.50) g/dL 11/13/18 11/14/18 Range/Units 20:45 07:32 POC Glucose (mg/dL) 174 H 112 H (75-99) mg/dL Albumin (PEP) (3.80-4.90) g/dL Xrqjt-2-Cdoifozpi (0.10-0.40) g/dL Gamma Globulins (0.70-1.50) g/dL Microbiology - Last 24 Hours (Table) 11/08/18 17:17 Blood Culture - Preliminary Blood No Growth after 120 hours
[2018-11-14 12:00] LABS: Glucose,Whole Blood 137 mg/dL (75-99)
[2018-11-14] MEDS: MORPHINE SULFATE 4 MG/ML SYRINGE IVP PRN (12:24)
--- NOTE | 2018-11-14 15:48 | P.PN ---
Subjective Progress Note Date: 11/14/18 Principal diagnosis: leg swelling Patient is a 38-year-old male with no reported past medical history (denies history of diabetes) who presented to the ER with complaints of right-sided neck swelling. In the ER he underwent an extensive evaluation. CT of the neck suggested cellulitis with inflammatory changes in the subcutaneous tissues. Initial laboratory analysis demonstrated a white blood cell count of 15.1, elevated blood sugar, and slight hyponatremia. He was started on IV antibiotics and IV fluids as well as insulin. He is admitted for further monitoring. Hemoglobin A1c came back at 13.3 and he was diagnosed with diabetes and started on insulin therapy. His ESR came back slightly elevated at 19. Infectious disease was consulted and recommended cefepime and vancomycin. Repeat CT of the neck was performed which showed decreasing size of the lymph nodes but no definitive abscess to drain. IRconsulted and stated there is no definitive abscess to drain, reapt CT of the neck showed decrase in size of mass but increase in myositis changes, also demonstrated splenomegally. General surgery had been following the patient and recommended no surgical intervention. Dr. Klein saw the patient and recommended MRI and addition of IV steroids. Patient seen and examined at bedside. He states he continued to have neck pain and swelling. Still having apneic episodes. Denies any chest pain or shortness of breath. Complains of some leg swelling. Still fixated on top goes. Had a long discussion regarding carbohydrates and diabetic management. He had one loose stool today and feels as though he is going to have more. Discussed addition of lactinex patient is in agreement. Objective - Vital Signs Vital signs: Vital Signs Temp 98.1 F 11/14/18 15:00 Pulse 96 11/14/18 15:00 Resp 16 11/14/18 15:00 BP 141/89 11/14/18 15:00 Pulse Ox 97 11/14/18 15:00 Intake & Output 11/13/18 11/14/18 11/14/18 18:59 06:59 18:59 Intake Total 1100 Output Total 1 Balance 1099 Intake: Oral 1100 Output: Stool 1 Other: Voiding Method Toilet # Voids 2 2 2 # Bowel Movements 0 - Exam General: non toxic, no distress, obese Derm: warm, dry Head: atraumatic, normocephalic, right sided swelling of the supraclavicular area with redness, no warmth or drainage Eyes: EOMI, no lid lag, anicteric sclera Mouth: no lip lesion, mucus membranes moist Cardiovascular: S1S2 reg, no murmur, positive posterior tibial pulse bilateral, Lungs: CTA bilateral, no rhonchi, no rales , no accessory muscle use Abdominal: soft, nontender to palpation, no guarding, no appreciable organomegaly Ext: no gross muscle atrophy, trace edema, no contractures Neuro: CN II-XI grossly intact, no focal neuro deficits Psych: Alert, oriented, appropriate affect - Labs CBC & Chem 7: 11/13/18 06:51 11/13/18 06:51 Labs: Abnormal Lab Results - Last 24 Hours (Table) 11/13/18 11/13/18 11/14/18 Range/Units 16:59 20:45 07:32 POC Glucose (mg/dL) 147 H 174 H 112 H (75-99) mg/dL C-Reactive Protein (<10.0) mg/L 11/14/18 11/14/18 Range/Units 08:40 11:58 POC Glucose (mg/dL) 137 H (75-99) mg/dL C-Reactive Protein 34.7 H (<10.0) mg/L Microbiology - Last 24 Hours (Table) 11/08/18 17:17 Blood Culture - Preliminary Blood No Growth after 120 hours Assessment and Plan Assessment: Cellulitis of the right neck with possible enlarged lymph nodes versus abscess with sepsis on admission -ID recommendations: zithromax and ertapenem X 10 days, midline ordered - add lactinex for loose stools -Per IR no area for drainage -ENT recs appreciated: MRI and decadron -Morphine and norco for pain control -stop IV fluids -Oncology recommendations appreciated: Follow-up needed if persistence of adenopathy despite resolution of soft tissue inflammation., Serum immunofixation, rheumatoid factor, HARSHAL, [place] and lambda negative Diabetes mellitus, newly discovered with hyperglycemia -Patient will be a poor candidate for insulin therapy despite having an A1c of 13.3 due to lack of knowledge of diabetes and understanding of care. After having outpatient diabetic education could consider insulin use. However at this time patient is unable to accept diagnosis. -Avoid metformin until we are sure he will no longer need any contrast dye exposure. -Plan will be to discharge home on metformin and Januvia -Continue with Levemir and sliding scale to inpatient. -Has been seen by dietitian and environmental educator Morbid obesity with BMI 39.3 -Outpatient structured weight loss recommended FMLA paparework completed and returned to patient to sign DVT prophylaxis: Heparin Discussed with: Patient, nursing Anticipated discharge: 1-[address]: Home A total of 25 minutes was spent on the care of this complex patient more than 50 % of the time was spent in counseling and care coordination.
[2018-11-14] MEDS: ERTAPENEM 1 GM in SODIUM CHLORIDE 0.9% 50 ML IVPB SCH (16:05)
[2018-11-14] MEDS: LACTOBACILLUS ACIDOPH & BULGAR 1 EACH PACKET PO SCH ×2 (16:24→21:18)
[2018-11-14] MEDS: HYDROcodone/APAP 5-325MG 1 EACH TAB PO PRN (16:24)
[2018-11-14] MEDS: AZITHROMYCIN 500 MG TAB PO SCH (16:24)
[2018-11-14 17:20] LABS: Glucose,Whole Blood 138 mg/dL (75-99)
--- NOTE | 2018-11-14 20:16 | MR ---
MR neck with and without contrast HISTORY: Right neck mass Multiplanar multisequence imaging obtained through the neck with postcontrast images following 11.5 c c Gadavist IV. Correlation CT neck 11/11/2018 Subcutaneous edema changes are noted as on prior CT. Enlarged nodes again noted bilaterally at the po sterior margin of the sternocleidomastoid muscles as on CT. Ill-defined area of abnormal increased si gnal on T2-weighted sequences corresponds with the intermediate signal on T1-weighted sequences, foll owing contrast administration there is diffuse enhancement to the area just deep to the skin as well as the skin overlying extending to the margin of the trapezius causing some local mass effect. Some c entral areas of lack of enhancement are noted. Skull base is unremarkable. Mild inflammatory change p resent within the maxillary sinus. IMPRESSION: Findings compatible with phlegmon, cellulitis, abscess not identified. There is bilateral adenopathy, follow-up is recommended.
[2018-11-14 20:49] LABS: Glucose,Whole Blood 170 mg/dL (75-99)
[2018-11-14] MEDS: INSULIN DETEMIR (LEVEMIR) 100 UNIT/ML SYR SQ SCH (21:19)
[2018-11-14] MEDS: diphenhydrAMINE 50 MG CAP PO PRN (21:26)
--- NOTE | 2018-11-15 00:10 | PN ---
PROGRESS NOTE DATE OF SERVICE: 11/14/2018. REASON FOR FOLLOWUP: Right neck cellulitis and lymphadenitis. INTERVAL HISTORY: The patient is currently afebrile. Pain to the right neck is currently controlled with pain medication. Denies any difficulty swallowing. No nausea, no vomiting. No abdominal pain or any diarrhea. PHYSICAL EXAMINATION: Blood pressure 141/69 with a pulse of 96, temperature 98.1, he is 97% on room air. GENERAL DESCRIPTION: A middle aged male up in the bed in no distress. HEENT: The redness to the right side of the neck persist but no worsening. LUNGS: Unlabored breathing. Clear to auscultation. HEART: S1, S2. Regular rate and rhythm. ABDOMEN: Soft, no tenderness. LABS: No CBC was done today. Sedimentation rate of 19, CRP 34.7. DIAGNOSTIC IMPRESSION AND PLAN: Patient with right-sided neck cellulitis with lymphadenitis. Cultures have been negative. No CT-guided aspirate of the area could be done per Interventional Radiology. ENT saw the patient and recommended steroids and MRI. Antibiotic has been adjusted to Invanz 1 g daily and Zithromax. Will monitor his clinical course closely. Continue supportive care. MMODL / IJN: [id number] /
[2018-11-15] MEDS: HYDROcodone/APAP 5-325MG 1 EACH TAB PO PRN (00:30)
--- NOTE | 2018-11-15 04:01 | CONS ---
CONSULTATION DATE OF CONSULTATION: 11/14/2018 REASON FOR CONSULTATION: Right neck swelling. HISTORY OF PRESENT ILLNESS: This patient is a very pleasant 38-year-old male who was admitted to [facility] via the emergency room on 11/08/2018. The patient stated that 3 days prior to that he had developed pain and swelling in the right side of his neck. He denied running any type of temperature or having difficulty swallowing or sore throat. He does relate the fact that previously he had a similar condition arise in the left side of his neck, which resolved over the course of a week without any treatment or seeing any type of physician. The patient subsequently saw one of the medical personnel at the local urgent care center. He was immediately referred to the emergency room. At the time he was seen in the emergency room, evaluation revealed the patient had significant swelling and tenderness of the right side of the neck. A CT scan did not reveal abscess, but it did reveal evidence of significant lymphadenopathy as well as swelling of the soft tissues and the muscles of the right anterior triangle of the neck, especially in the supraclavicular area. In addition, there was questionable evidence of possible posterior pleural effusion. The patient was subsequently admitted where the appropriate consultation with Infectious Disease, Medicine, etc. were obtained. The patient was placed on intravenous antibiotics. Since his admission a repeat CT scan showed that there was some decrease in the size of the swelling on the right side of the neck and the patient states that he has started to feel better with less tenderness and less difficulty with moving his neck from side to side. PAST MEDICAL HISTORY: Reveals he has an allergy to amoxicillin and to eggs. He is a smoker and smokes a cigar occasionally and was advised by me to quit for obvious health reasons because of increased risk of heart disease, cancer of the of the head and neck as well as well as the upper digestive tract and lung cancer. I advised the patient that his risk were similar to those of a cigarette smoker, although he only smokes occasionally and he smokes cigars, there simply is no difference in the risk. CURRENT MEDICATIONS AT HOME: Include Prilosec, Claritin tablets for seasonal allergies, Motrin, naproxen (the latter 2 medications are [id number]), Invanz and Zithromax. I assume the last two antibiotics were medications that he was placed on on an outpatient basis. REVIEW OF SYSTEMS: Review of systems is positive with respect to the gastrointestinal system and the patient is known to have a history of gastroesophageal reflux disease, so-called GERD. In addition to that he has a history of osteoarthritis. Remainder of review of systems is unremarkable. PHYSICAL EXAMINATION: This patient is a very pleasant 38-year-old male who is alert and cooperative. HEENT examination: Patient is normocephalic. Tympanic membranes are normal. Middle ear spaces are free of any fluid or infection. Pupils equal, round, react to light accommodation. Extraocular movements within normal limits. Intranasal examination reveals moderate septal deviation with bilateral compensatory hypertrophy of the inferior turbinates. There is there is a normal amount of clear mucus coming from both maxillary sinus ostia and on the mucous membranes. Examination of the oropharynx is unremarkable. Palpation of the neck with attention to the right anterior triangle reveals the patient has moderate soft tissue swelling and tenderness at the upper portion of the neck and as one descended down to the lower portion of the anterior triangle of the neck toward the right supraclavicular area, there is noted that there is a right mass which appears to have the consistency of a group of matted lymph nodes. It is tender, slightly mobile, but definitely not fluctuant. There are also several other small lymph nodes located elsewhere in the right side of the neck. The left side of the neck appears to be negative for any significant lymphadenopathy. Cranial nerves 2 through 12 and the remainder of the head and neck exam is unremarkable. Chest, cardiovascular and both lung george are clear to percussion and auscultation. The patient in regular sinus rhythm. S1, S2 are present without any murmurs, S3s or S4s. The patient's peripheral pulses are bilaterally symmetrical within normal limits. The remainder of physical exam is unremarkable. ASSESSMENT: Right neck mass/lymphadenopathy, doubt abscess but probable mild cellulitis involving the muscles as well as the surrounding soft tissue. The etiology? PLAN: I advise that we continue with the current intravenous antibiotics, I will order an MRI of the neck with contrast which may give us better definition of this neck mass as far as whether it represents a solid mass or simply a group of matted lymph nodes. In addition to this, I will put the patient on a tapered dose of dexamethasone in an effort to reduce the inflammation, assuming this is inflamed lymph nodes, with the schedule being dexamethasone 10 mg x1 to be followed 6 hours later by 5 mg q.6 x3 doses and this will be followed by 2 mg IV q.6 time 2 doses and stop. Unfortunately, the introduction of the steroids will elevate the patient's already mildly elevated white count, which is approximately 15,000 and in addition to this, it will elevate his blood sugars. He is currently on insulin and, therefore, a sliding scale will have to be used to adjust his insulin so as to maintain appropriate blood sugar levels. I will follow this patient with you on a daily basis. At this point, I suspect that this patient's condition is infectious in origin as opposed to some type of malignancy. However, the type of infection I am not sure on. I do not, at this point, recommend any type of needle guided biopsy by CT or ultrasound because I feel it would be inconclusive at this point. Again, I will follow the patient with you on a daily basis and make the appropriate notes and recommendations. I want to take this opportunity to thank you for allowing me to assist in the care of your patient. MMAMBERL / IJN: [id number] /
[2018-11-15 07:20] LABS: Glucose,Whole Blood 113 mg/dL (75-99)
[2018-11-15] MEDS: HEPARIN SODIUM,PORCINE 5,000 UNIT/ML 1 ML VIAL SQ SCH ×2 (07:28→16:09)
[2018-11-15] MEDS: INSULIN ASPART (NovoLOG) 100 UNIT/ML VIAL SQ SCH ×4 (07:29→21:15)
[2018-11-15] MEDS: LACTOBACILLUS ACIDOPH & BULGAR 1 EACH PACKET PO SCH ×3 (07:30→21:10)
[2018-11-15] MEDS: ERTAPENEM 1 GM in SODIUM CHLORIDE 0.9% 50 ML IVPB SCH (07:30)
[2018-11-15] MEDS: PANTOPRAZOLE 40 MG TABLET PO SCH (07:30)
[2018-11-15] MEDS: AZITHROMYCIN 500 MG TAB PO SCH (07:30)
[2018-11-15] MEDS ORDERED: DEXAMETHASONE SOD PHOSPHATE 10 MG/ML 1 ML VIAL IV STA (10:20)
--- NOTE | 2018-11-15 11:33 | P.PN ---
Subjective Progress Note Date: 11/15/18 Principal diagnosis: leg swelling Patient is a 38-year-old male with no reported past medical history (denies history of diabetes) who presented to the ER with complaints of right-sided neck swelling. In the ER he underwent an extensive evaluation. CT of the neck suggested cellulitis with inflammatory changes in the subcutaneous tissues. Initial laboratory analysis demonstrated a white blood cell count of 15.1, elevated blood sugar, and slight hyponatremia. He was started on IV antibiotics and IV fluids as well as insulin. He is admitted for further monitoring. Hemoglobin A1c came back at 13.3 and he was diagnosed with diabetes and started on insulin therapy. His ESR came back slightly elevated at 19. Infectious disease was consulted and recommended cefepime and vancomycin. Repeat CT of the neck was performed which showed decreasing size of the lymph nodes but no definitive abscess to drain. IRconsulted and stated there is no definitive abscess to drain, reapt CT of the neck showed decrase in size of mass but increase in myositis changes, also demonstrated splenomegally. General surgery had been following the patient and recommended no surgical intervention. Dr. Klein saw the patient and recommended MRI and addition of IV steroids. MRI showed phlegmon but no abscess. Patient seen and examined at bedside. Still with neck pain, no additional loose stools. No chest pain, SOB, or nausea. Again discussed low carb diet and dietary modification, patient continues to not fully comprehend the idea of low carbohydrate diet. He continues to want to eat his same diet that he was prior to having diabetes. He is afraid of needles and does not want insulin therapy at this time. Computed voided. We discussed a trial of metformin and Januvia. We discussed that metformin can cause some GI upset. Objective - Vital Signs Vital signs: Vital Signs Temp 97.8 F 11/15/18 07:17 Pulse 56 L 11/15/18 07:17 Resp 16 11/15/18 07:17 BP 143/82 11/15/18 07:17 Pulse Ox 98 11/15/18 07:17 Intake & Output 11/14/18 11/15/18 11/15/18 18:59 06:59 18:59 Intake Total 900 Balance 900 Intake: Oral 900 Other: Voiding Method Toilet # Voids 2 1 - Exam General: non toxic, no distress, obese Derm: warm, dry, Mid line right upper arm Head: atraumatic, normocephalic, right sided swelling of the supraclavicular area with redness, no warmth or drainage Eyes: EOMI, no lid lag, anicteric sclera Mouth: no lip lesion, mucus membranes moist Cardiovascular: S1S2 reg, no murmur, positive posterior tibial pulse bilateral, Lungs: decreased bs bilateral, no rhonchi, no rales , no accessory muscle use Abdominal: soft, nontender to palpation, no guarding, no appreciable organomegaly Ext: no gross muscle atrophy, trace edema, no contractures Neuro: CN II-XI grossly intact, no focal neuro deficits Psych: Alert, oriented, appropriate affect - Labs CBC & Chem 7: 11/13/18 06:51 11/13/18 06:51 Labs: Abnormal Lab Results - Last 24 Hours (Table) 11/14/18 11/14/18 11/14/18 Range/Units 08:40 11:58 17:12 POC Glucose (mg/dL) 137 H 138 H (75-99) mg/dL C-Reactive Protein 34.7 H (<10.0) mg/L 11/14/18 11/15/18 Range/Units 20:44 07:16 POC Glucose (mg/dL) 170 H 113 H (75-99) mg/dL C-Reactive Protein (<10.0) mg/L Microbiology - Last 24 Hours (Table) 11/08/18 17:17 Blood Culture - Final Blood No Growth after 144 hours Assessment and Plan Assessment: Cellulitis of the right neck with possible enlarged lymph nodes versus abscess with sepsis on admission -ID recommendations: zithromax and ertapenem X 10 days, midline placed 2/5 - lactinex -Per IR no area for drainage -ENT recs appreciated: decadron taper -Morphine and norco for pain control -stop IV fluids -Oncology recommendations appreciated: Follow-up needed if persistence of adenopathy despite resolution of soft tissue inflammation., Serum immunofixation, rheumatoid factor, HARSHAL, Wilmer and lambda negative Diabetes mellitus, newly discovered with hyperglycemia -Patient will be a poor candidate for insulin therapy despite having an A1c of 13.3 due to lack of knowledge of diabetes and understanding of care. After having outpatient diabetic education could consider insulin use. However at this time patient is unable to accept diagnosis. -Avoid metformin until we are sure he will no longer need any contrast dye exposure. -Plan will be to discharge home on metformin and Januvia -Continue with Levemir and sliding scale to inpatient. -Has been seen by dietitian and para educator Morbid obesity with BMI 39.3 -Outpatient structured weight loss recommended Discharge planning: IV abx are in place and he will be going in for daily infusion. RX for metformin, januvia, and lactinex ordered. Diabetic testing supplies ordered. No PCP prior to admission will reffer to Cecy Yap NP. Will also need RX for pain medication, started on norco 5/325 if effective could prescribe. If needs oral decadron on discharge will need RX sent. DVT prophylaxis: Heparin Discussed with: Patient, nursing Anticipated discharge: [address]: Home A total of 25 minutes was spent on the care of this complex patient more than 50 % of the time was spent in counseling and care coordination.
[2018-11-15 11:35] LABS: HCT 38.3 % (39.0-53.0); HGB 12.7 gm/dL (13.0-17.5); MCH 28.3 pg (25.0-35.0); MCHC 33.2 g/dL (31.0-37.0); MCV 85.4 fL (80.0-100.0); Mean Platelet Volume 8.9; Platelet Count 264 k/uL (150-450); RBC 4.48 m/uL (4.30-5.90); RDW 13.5 % (11.5-15.5); WBC 9.5 k/uL (3.8-10.6)
[2018-11-15 11:47] LABS: ALT 32 U/L (21-72); AST 19 U/L (17-59); Albumin 2.9 g/dL (3.5-5.0); Alkaline Phosphatase 104 U/L (38-126); Anion Gap 4 mmol/L; Blood Urea Nitrogen 8 mg/dL (9-20); Calcium 8.5 mg/dL (8.4-10.2); Carbon Dioxide 30 mmol/L (22-30); Chloride 108 mmol/L (98-107); Glucose 172 mg/dL (74-99); Potassium 3.4 mmol/L (3.5-5.1); Sodium 142 mmol/L (137-145); Total Bilirubin 0.5 mg/dL (0.2-1.3); Total Protein 5.6 g/dL (6.3-8.2)
[2018-11-15 12:43] LABS: Glucose,Whole Blood 132 mg/dL (75-99)
[2018-11-15] MEDS ORDERED: POTASSIUM BICARBONATE/CIT AC 20 MEQ TABLET.EFF PO ONE (17:30)
[2018-11-15 17:35] LABS: Glucose,Whole Blood 218 mg/dL (75-99)
[2018-11-15] MEDS: DEXAMETHASONE SOD PHOSPHATE 4 MG/ML 1 ML VIAL IV SCH (20:23)
[2018-11-15 21:09] LABS: Glucose,Whole Blood 301 mg/dL (75-99)
[2018-11-15] MEDS: diphenhydrAMINE 50 MG CAP PO PRN (21:10)
[2018-11-15] MEDS: INSULIN DETEMIR (LEVEMIR) 100 UNIT/ML SYR SQ SCH (21:10)
--- NOTE | 2018-11-15 22:47 | PN ---
PROGRESS NOTE DATE OF SERVICE: 11/15/2018. REASON FOR CONSULTATION: Right neck cellulitis and . INTERVAL HISTORY: The patient is currently afebrile, has been breathing comfortably. He continues with pain and swelling to the but no worsening. No difficulty swallowing, no difficulty breathing. No abdominal pain and no diarrhea. PHYSICAL EXAMINATION: Blood pressure 159/93 with a pulse of 72, temperature of 98.1. He is 93% on room air. General description is a middle-aged male up in the room in no distress. HEENT examination: The right area swelling and redness with slight induration and tenderness. LUNGS: Unlabored breathing. Clear to auscultation anteriorly. Heart S1, S2. Regular rate and rhythm. Abdomen soft. No tenderness. LABS: Hemoglobin is 12.7, white count 9.5, BUN of 8, creatinine 0.64. Cultures have been negative. DIAGNOSTIC IMPRESSION AND PLAN: Patient with right leg cellulitis with associated left . The patient is currently on Invanz to continue with oral Zithromax with close outpatient followup. Continue supportive care. MMODL / IJN: [id number] /
[2018-11-16] MEDS: DEXAMETHASONE SOD PHOSPHATE 4 MG/ML 1 ML VIAL IV SCH (02:00)
[2018-11-16] MEDS: HEPARIN SODIUM,PORCINE 5,000 UNIT/ML 1 ML VIAL SQ SCH ×2 (03:27→07:43)
[2018-11-16 07:17] LABS: Glucose,Whole Blood 217 mg/dL (75-99)
[2018-11-16 07:40] VITALS: BP 138/90; PULSE 62; RESP 16; TEMP 98.3
[2018-11-16] MEDS: ERTAPENEM 1 GM in SODIUM CHLORIDE 0.9% 50 ML IVPB SCH (07:40)
[2018-11-16] MEDS: AZITHROMYCIN 500 MG TAB PO SCH (07:43)
[2018-11-16] MEDS: PANTOPRAZOLE 40 MG TABLET PO SCH (07:43)
[2018-11-16] MEDS: LACTOBACILLUS ACIDOPH & BULGAR 1 EACH PACKET PO SCH (07:43)
[2018-11-16] MEDS: INSULIN ASPART (NovoLOG) 100 UNIT/ML VIAL SQ SCH ×2 (07:46→13:04)
[2018-11-16 11:43] LABS: Glucose,Whole Blood 210 mg/dL (75-99)
--- NOTE | 2018-11-16 12:35 | P.DS ---
Providers Date of admission: 11/08/18 19:41 Expected date of discharge: 11/16/18 Attending physician: Nishant Liu MD Consults: 11/08/18 19:42 Consult Physician Routine Consulting Provider: Adis Felix Consult Reason/Comments: Neck Mass Do you want consulting provider notified?: Yes 11/08/18 22:11 Consult Physician Routine Consulting Provider: Samuel Monte Consult Reason/Comments: neck mass ?Abscess Do you want consulting provider notified?: Yes, Notify in am 11/09/18 15:56 Consult Physician Routine Consulting Provider: Jeff Be Consult Reason/Comments: Facial cellulitis Do you want consulting provider notified?: Yes 11/13/18 08:34 Consult Physician Routine Consulting Provider: Damir Earl Consult Reason/Comments: Neck infection with swelling Do you want consulting provider notified?: Yes Primary care physician: Stated None - Discharge Diagnosis(es) (1) Cellulitis, neck Current Visit: Yes Status: Acute (2) Cervical lymphadenopathy Current Visit: Yes Status: Acute (3) Uncontrolled type 2 diabetes mellitus with hyperglycemia Current Visit: Yes Status: Acute (4) Morbid obesity Current Visit: Yes Status: Acute Hospital Course: Patient is a 38-year-old male with no reported past medical history (denies history of diabetes) who presented to the ER with complaints of right-sided neck swelling. In the ER he underwent an extensive evaluation. CT of the neck suggested cellulitis with inflammatory changes in the subcutaneous tissues. Initial laboratory analysis demonstrated a white blood cell count of 15.1, elevated blood sugar, and slight hyponatremia. He was started on IV antibiotics and IV fluids as well as insulin. He is admitted for further monitoring. Hemoglobin A1c came back at 13.3 and he was diagnosed with diabetes and started on insulin therapy. The patient reported a ongoing phobia of needles and stated that compliance with insulin regimen would be a challenge , hence arrangements are made for a trial of Januvia and metformin on discharge. His ESR came back slightly elevated at 19. Infectious disease was consulted and recommended cefepime and vancomycin. Repeat CT of the neck was performed which showed decreasing size of the lymph nodes but no definitive abscess to drain. IR consulted and stated there is no definitive abscess to drain, repeat CT of the neck showed in size of mass but increase in myositis changes, also demonstrated splenomegally. General surgery had been following the patient and recommended no surgical intervention. Dr. Eral saw the patient and recommended MRI and addition of IV steroids. MRI showed phlegmon but no abscess. The patient was subsequently discharged home with continuing steroids with azithromycin and ertapenem for 10 more days midline was placed on 11/14 for ongoing IV antibiotic infusions which patient will follow up with Dr. Be's clinic. Patient will also follow-up with Cecy Yap NP for monitoring of his diabetes and other chronic medical conditions. This discharge process took approximately 35 minutes Discharge physical General: non toxic, no distress, obese Derm: warm, dry, Mid line right upper arm Head: atraumatic, normocephalic, right sided swelling of the supraclavicular area with redness, no warmth or drainage Eyes: EOMI, no lid lag, anicteric sclera Mouth: no lip lesion, mucus membranes moist Cardiovascular: S1S2 reg, no murmur, positive posterior tibial pulse bilateral, Lungs: decreased bs bilateral, no rhonchi, no rales , no accessory muscle use Abdominal: soft, nontender to palpation, no guarding, no appreciable organomegaly Ext: no gross muscle atrophy, trace edema, no contractures Neuro: CN II-XI grossly intact, no focal neuro deficits Psych: Alert, oriented, appropriate affect Patient Condition at Discharge: Good Plan - Discharge Summary Discharge Rx Participant: No New Discharge Prescriptions: New Ertapenem [INVanz] 1 gm IVPB Q24H #10 bag Azithromycin [Zithromax] 500 mg PO DAILY #10 tab Lactobacillus Acidophilus [Acidophilus] 1 each PO AC-TID #90 tablet metFORMIN HCL 500 mg PO AC-BID #60 tablet sitaGLIPtin [Januvia] 100 mg PO DAILY #30 tab Continue Ibuprofen [Motrin Ib] 400 mg PO Q4H [id number] [Excedrin] 2 tab PO BID Loratadine [Claritin] 10 mg PO DAILY diphenhydrAMINE [Benadryl] 50 mg PO HS PRN PRN Reason: SLEEP Omeprazole 20 mg PO DAILY Discontinued Naproxen Sodium [Aleve] 440 mg PO HS Naproxen Sodium [Aleve] 220 mg PO DAILY Discharge Medication List [id number] [Excedrin] 2 tab PO BID 11/08/18 [History] Ibuprofen [Motrin Ib] 400 mg PO Q4H 11/08/18 [History] Loratadine [Claritin] 10 mg PO DAILY 11/08/18 [History] Omeprazole 20 mg PO DAILY 11/08/18 [History] diphenhydrAMINE [Benadryl] 50 mg PO HS PRN 11/08/18 [History] Ertapenem [INVanz] 1 gm IVPB Q24H #10 bag 11/14/18 [Rx] Azithromycin [Zithromax] 500 mg PO DAILY #10 tab 11/15/18 [Rx] Lactobacillus Acidophilus [Acidophilus] 1 each PO AC-TID #90 tablet 11/15/18 [Rx ] metFORMIN HCL 500 mg PO AC-BID #60 tablet 11/15/18 [Rx] sitaGLIPtin [Januvia] 100 mg PO DAILY #30 tab 11/15/18 [Rx] Follow up Appointment(s)/Referral(s): Cecy Romero NPC [Nurse Practitioner] - 11/27/18 3:40 pm [facility],Infusion [NON-STAFF] - Jeff Be MD [STAFF PHYSICIAN] - (For starting IV Infusion, please come to Dr. Be office on 11/17/18 at 11:00AM.) Activity/Diet/Wound Care/Special Instructions: Carb consistent diet Activity as tolerated Check blood sugar once daily and make a log to bring to your doctors appointment JD midline inserted 11/15/18 for IV antibiotics Discharge Disposition: HOME SELF-CARE
--- NOTE | 2018-11-16 16:15 | PN ---
PROGRESS NOTE DATE OF SERVICE: 11/16/2018 REASON FOR FOLLOWUP: Right neck cellulitis and lymphadenitis. INTERVAL HISTORY: The patient was seen on rounds this morning. The patient has been afebrile. He is breathing comfortably. Pain to the right side of the neck has decreased in intensity. No nausea or vomiting, no abdominal pain. No diarrhea. PHYSICAL EXAMINATION: Blood pressure is 138/90 with a pulse of 62. Temperature 98.3. He is 97% on room air. General description is a middle aged male up in the chair in no distress. HEENT examination right-sided neck swelling and redness. Minimal decreased. LUNGS: Unlabored breathing. Clear to auscultation anteriorly. Heart S1, S2. Regular rate and rhythm. Abdomen soft, no tenderness. LABS: CRP 34.7. No CBC was done today. Culture has been negative. DIAGNOSTIC IMPRESSION AND PLAN: The patient with right neck cellulitis with lymphadenitis. No evidence of any drainable abscess. The patient currently on Invanz and Zithromax to continue for 10 more days in outpatient setting with weekly monitoring of CRP. Continue supportive care. MMODL / IJN: [id number] /
[2018-11-17 11:24] LABS: HIV 1 AB Non-Reactive (Non-Reactive); HIV AB P24 Non-Reactive (Non-Reactive); HIV P24 AG Non-Reactive (Non-Reactive)
== END 2018-11-16 14:33 | disposition home or self-care (01) | DRG 872 ==
LOC: EC 16:27 → 4MS4W 19:41
PROVIDERS: ADMIT Internal Medicine; ATTEND Internal Medicine
PROC: 05HD33Z Insertion of Infusion Device into Right Cephalic Vein, Percutaneous Approach (ICD-10-PCS; principal; 2018-11-15 08:55)
DX: A41.9 Sepsis, unspecified organism (principal); L03.211 Cellulitis of face; L03.221 Cellulitis of neck; E11.65 Type 2 diabetes mellitus with hyperglycemia; E66.01 Morbid (severe) obesity due to excess calories; Z68.39 Body mass index [BMI] 39.0-39.9, adult; F17.210 Nicotine dependence, cigarettes, uncomplicated; F41.9 Anxiety disorder, unspecified; I88.9 Nonspecific lymphadenitis, unspecified; K04.7 Periapical abscess without sinus; K21.9 Gastro-esophageal reflux disease without esophagitis; M60.9 Myositis, unspecified; S02.5XXA Fracture of tooth (traumatic), initial encounter for closed fracture; W57.XXXA Bitten or stung by nonvenomous insect and other nonvenomous arthropods, initial encounter; Z83.3 Family history of diabetes mellitus; Z86.010 Personal history of colon polyps; Z88.0 Allergy status to penicillin; Z91.012 Allergy to eggs; Z79.1 Long term (current) use of non-steroidal anti-inflammatories (NSAID); Z79.82 Long term (current) use of aspirin; Z79.899 Other long term (current) drug therapy
CPT/HCPCS: 36410; 36415; 70491; 70543; 71260; 76937; 80048; 80053; 80202; 83036; 83605; 83883; 84165; 85025; 85027; 85610; 85652; 86038; 86140; 86334; 86431; 87040; 87390; 94660; 96361; 96365; 96375; 99285

== ENCOUNTER → 2019-02-22 | Outpatient (CLI) | payer BC, OTHER ==
--- NOTE | 2019-02-22 21:16 | CONS ---
CONSULTATION DATE OF SERVICE: 02/22/2019. 38-year-old gentleman who has been evaluated in the sleep center for possible obstructive sleep apnea-hypopnea syndrome. HISTORY OF PRESENT ILLNESS/SLEEP WAKE EVALUATION: The patient was diagnosed according to him about 20 years ago with obstructive sleep apnea-hypopnea syndrome but at that time for different reasons was not able to get treatment with CPAP. SLEEP SCHEDULE: Presently his sleep schedule on working days from 7 to 8 p.m. to 4:00 am and on weekends from about 8 or 9:00 pm to 6 a.m. FALLING ASLEEP: Sometimes he has problem with falling asleep. DURING SLEEP: He preferred to sleep on the belly. While he was in the hospital, he was told about loud snoring and witnessed episodes of stopped breathing during the sleep. He wakes up from sleep several times with 1 episode of nocturia. DURING THE DAY/SLEEP WAKE EVALUATION: In the morning, patient wakes up tired, has difficulties to pay attention, has problem with the memory, irritability, depression and anxiety. [place] Sleepiness Scale significantly increased to 12. PAST MEDICAL HISTORY: Positive for diabetes mellitus, allergy, acid reflux, back problem, migraine. PAST SURGICAL HISTORY: Tonsillectomy, uvulectomy, adenoidectomy, nasal surgery for nasal septum deviation. Ear tube insertion in inspection clerk. MEDICATIONS: Janumet, doxycycline, Claritin, , omeprazole, ibuprofen, Excedrin, probiotics. SOCIAL HISTORY: Positive for occasional smoking cigars, alcohol consumption occasional. FAMILY HISTORY: Hypertension, hyperlipidemia, fibromyalgia, arthritis, sleep apnea, snoring, headaches, diabetes, acid reflux. PHYSICAL EXAM: gentleman without distress. BP 128/85, HR 98, RR 18, height 5 feet 7 inches, weight 262.6 pounds. Temperature 98.2, oxygen saturation at room air 94%. Oropharynx extremely low position of soft palate. Mallampati 4. Restriction of nasal breathing. Wide neck 19-1/4 inches in circumference. Neck Supple, no JVD. Thyroid is not palpable. LUNGS Clear to percussion and to auscultation. Good air exchange. No wheezing or rhonchi. HEART S1, S2 regular. No murmurs, gallops, or rubs. ABDOMEN: Obese. Soft and nontender. Bowel sounds are present. No organomegaly appreciated. EXTREMITIES No clubbing or cyanosis. STREET LIGHT CLEANER Awake, alert, and oriented X3. Cranial nerves 2 to 7 intact. There is no fasciculation or atrophy. noted. No focal deficits observed. IMPRESSION: 1. Snoring, episodes of stopped breathing during the sleep, awakenings from sleep with choking and gasping for air, extremely low position of soft palate, wide neck, excessive daytime sleepiness, obstructive sleep apnea-hypopnea syndrome. 2. Obesity, body mass index 41.0. 3. Diabetes mellitus. 4. Allergies. 5. Acid reflux. 6. Back problems. 7. Migraine. 8. Status post tonsillectomy and adenoidectomy and adenoidectomy and uvulectomy. 9. Status post surgery for nasal septum deviation. PLAN: 1. Polysomnography for evaluation of patient's breathing during sleep. 2. CPAP/BiPAP titration if sleep study confirms obstructive sleep apnea-hypopnea syndrome. 3. Preferable position during sleep on the side. 4. No driving if patient feels any sleepiness. 5. I will see patient for follow up visit to explain results of testing and following plan. Thank you very much for referring this patient for consultation. Sincerely, Curtis Yang MD, PhD, FAASM Diplomat of [employer] [facility] [place] MMODL / KLAUSN: [id number] /
== END ==
LOC: SLEEP 16:06
PROVIDERS: ATTEND Internal Medicine
DX: G47.33 Obstructive sleep apnea (adult) (pediatric) (principal); E66.9 Obesity, unspecified; E11.9 Type 2 diabetes mellitus without complications; K21.9 Gastro-esophageal reflux disease without esophagitis; R29.898 Other symptoms and signs involving the musculoskeletal system; G43.909 Migraine, unspecified, not intractable, without status migrainosus; Z90.89 Acquired absence of other organs; Z88.9 Allergy status to unspecified drugs, medicaments and biological substances; Z68.41 Body mass index [BMI] 40.0-44.9, adult; Z98.890 Other specified postprocedural states; Z79.899 Other long term (current) drug therapy; Z79.1 Long term (current) use of non-steroidal anti-inflammatories (NSAID)
CPT/HCPCS: 99211

== ENCOUNTER → 2019-07-05 | Outpatient (CLI) | payer BC, OTHER ==
--- NOTE | 2019-07-05 17:51 | PN ---
PROGRESS NOTE DATE OF SERVICE: 07/05/2019 39-year-old gentleman has been followed in Sleep Center for treatment of obstructive sleep apnea-hypopnea syndrome. Recently patient had home sleep apnea test which showed that patient has borderline to severe obstructive sleep apnea-hypopnea syndrome. Subsequently, he was started on treatment with auto PAP. Today is his visit after he was started on treatment. Patient feels better while he is using the machine. He sleeps better. He feels better during the day, but it is not all night. Some of the nights he has some problems with the usage of the machine. [place] Sleepiness Scale today is 10. I checked his CPAP unit. He used it for 67 out of 71 nights and 50 out of 71 nights. Every night it was more than 4 hours with average usage for 4.9 hours. Range of the pressure 5-20 with average pressure 9.3 cm of water. Leak is 23 L/minutes which is acceptable. Apnea-hypopnea index for all periods of time 2.7, which is normal range. MEDICATION: Janumet, Claritin, omeprazole, ibuprofen, Excedrin, probiotics. PHYSICAL EXAM: Patient in no distress. BP 124/69, HR 92, RR 16, weight 260, temp 97.7, oxygen saturation at room air 96%. Oropharynx extremely low soft palate, Mallampati 4. Neck: Supple, no JVD. Thyroid is not palpable. LUNGS Clear to percussion and to auscultation. Good air exchange. No wheezing or rhonchi. HEART S1, S2 regular. No murmurs, gallops, or rubs. ABDOMEN: Obese. Soft and nontender. Bowel sounds are present. No organomegaly appreciated. EXTREMITIES No clubbing or cyanosis. SPECIAL NEEDS TUTOR Awake, alert, and oriented X3. Cranial nerves 2 to 7 intact. There is no fasciculation or atrophy. noted. No focal deficits observed. IMPRESSION: 1. Moderate borderline to severe obstructive sleep apnea-hypopnea syndrome, on control with CPAP. The patient demonstrated acceptable compliance with treatment benefitting from treatment. 2. Obesity. 3. Diabetes mellitus. 4. ALLERGIES. 5. Acid reflux. 6. Back problem. 7. History of migraine. 8. Status post tonsillectomy and adenoidectomy. 9. Status post surgery for nasal septum deviation. 10.Status uvulectomy. PLAN: 1. Patient will continue to use CPAP equipment every night for the whole night. 2. Losing weight. 3. Sleep hygiene in bed for at least 8 hours. 4. No driving if feeling sleepiness. 5. I will maintain all necessary prescriptions for CPAP supplies including mask, tube, filters. Thank you very much for allowing me to participate in management of your patient. Sincerely, Curtis Yang MD, PhD, FAASM Diplomat of [place] [employer] Fine Grade Bulldozer Operator of [facility] [place] MMODL / IJN: [id number] /
== END | disposition home or self-care (01) ==
LOC: SLEEP 15:24
PROVIDERS: ATTEND Internal Medicine
DX: G47.33 Obstructive sleep apnea (adult) (pediatric) (principal); E66.9 Obesity, unspecified; E11.9 Type 2 diabetes mellitus without complications; K21.9 Gastro-esophageal reflux disease without esophagitis; M53.9 Dorsopathy, unspecified; T78.40XA Allergy, unspecified, initial encounter; Z86.69 Personal history of other diseases of the nervous system and sense organs; Z99.89 Dependence on other enabling machines and devices; Z98.890 Other specified postprocedural states

== ENCOUNTER → 2020-09-17 | Outpatient (CLI) | payer BC, OTHER ==
--- NOTE | 2020-09-17 21:09 | SFUN ---
SLEEP CENTER FOLLOW UP NOTE DATE OF SERVICE: 09/17/2020 40-year-old gentleman has been followed in Sleep Center for treatment of obstructive sleep apnea-hypopnea syndrome and excessive daytime sleepiness. Recently, patient had CPAP titration and the following multiple sleep latency test for objective evaluation of patient has symptoms of excessive daytime sleepiness. The sleep latency on 5 naps is 13.4, which is borderline. At the same time, patient continued to feel sleepiness during the day and he is a overnight stocker worker. He sleeps from 5:00 pm to 1:00 am. The multiple sleep latency test which we did was done during the daytime not during the time when the patient normally working, so could be some discrepancy between different times of the day. [place] Sleepiness Scale is 11. The patient continues to use his CPAP equipment every night. No snoring with the machine. MEDICATIONS: , Janumet, doxylamine, Claritin, omeprazole, Ibuprofen. PHYSICAL EXAM: Patient in no distress. BP 125/94, HR 82, temperature 98.2, oxygen saturation at room air 97%. Height 5 feet 7 inches, weight 264, BMI 41.1. HEENT: PERRLA, EOMI. Evaluation of oropharynx showed tongue protrudes midline. Low position of soft palate. Mallampati 4. NECK: Supple, no JVD. Thyroid is not palpable. LUNGS: Clear to percussion and to auscultation. Good air exchange. No wheezing or rhonchi. HEART: S1, S2 regular. No murmurs, gallops, or rubs. ABDOMEN: Soft and nontender. Bowel sounds are present. No organomegaly appreciated. EXTREMITIES: No clubbing or cyanosis. TELEVISION CABLE INSTALLER: Awake, alert, and oriented X3. Cranial nerves 2 to 7 intact. There is no fasciculation or atrophy. noted. No focal deficits observed. IMPRESSION: 1. Obstructive sleep apnea-hypopnea syndrome in moderate close to severe range, normal respiration on CPAP. 2. Sleepiness during the day, especially at nighttime when patient works as a overnight stocker worker. 3. Obesity. 4. Diabetes mellitus. 5. Allergy. 6. Acid reflux. 7. Back problem. 8. History of migraine. 9. Status post tonsillectomy and adenoidectomy. 10.Status post surgery for nasal septum deviation. 11.Status post uvulectomy. PLAN: 1. Patient will continue to use CPAP equipment every night for the whole night. 2. Patient will be started on treatment with modafinil 200 mg once a day with a goal to prevent excessive daytime sleepiness. 3. Watching and losing weight. 4. Precautions related to driving. No driving if feeling sleepiness. 5. I will maintain all necessary prescription for PAP supplies including mask, tube, filters. 6. No driving if feeling sleepiness. 7. Follow-up visit in 6 months or earlier if patient has any problems. Thank you very much for allowing me to participate in management of your patient. Sincerely, Curtis Yang MD, PhD, FAASM Diplomat of [place] [employer] Special[employer] [place] [employer] Manager Assembly of [facility] [place] MMODL / KLAUSN: [id number] /
== END | disposition home or self-care (01) ==
LOC: SLEEP 15:24
PROVIDERS: ATTEND Internal Medicine
DX: G47.33 Obstructive sleep apnea (adult) (pediatric) (principal); E11.9 Type 2 diabetes mellitus without complications; T78.40XA Allergy, unspecified, initial encounter; K21.9 Gastro-esophageal reflux disease without esophagitis; Z86.69 Personal history of other diseases of the nervous system and sense organs; Z90.09 Acquired absence of other part of head and neck; Z98.890 Other specified postprocedural states; Z79.899 Other long term (current) drug therapy; Z79.1 Long term (current) use of non-steroidal anti-inflammatories (NSAID); Z68.41 Body mass index [BMI] 40.0-44.9, adult; Z79.84 Long term (current) use of oral hypoglycemic drugs; Z99.89 Dependence on other enabling machines and devices

== ENCOUNTER → 2020-12-10 | Outpatient (CLI) | payer BC, OTHER ==
--- NOTE | 2020-12-11 01:20 | SFUN ---
SLEEP CENTER FOLLOW UP NOTE DATE OF SERVICE: 12/10/2020 40-year-old gentleman has been followed in Sleep Center for treatment of obstructive sleep apnea-hypopnea syndrome and excessive daytime sleepiness. The patient continues to use his CPAP equipment every night for the whole night. He also was started on treatment with modafinil 200 mg in the morning to prevent any excessive sleepiness. With medication, patient feels much better and that controls his sleepiness. He continues to use his CPAP equipment every night. MEDICATIONS: Farxiga 5 mg once a day, Janumet 51,000 twice a day, Diphenhydramine 25 mg 3 times a day. Claritin 10 mg once a day. Unisom 25 mg once a day, omeprazole 20 mg once a day, tramadol 100 mg twice a day, modafinil 200 mg once a day. PHYSICAL EXAM: Patient in no distress. VITAL SIGNS: BP 121/87, HR 92, RR 18, height 5 feet 7 inches, weight 258 pounds. Temperature 97.6, oxygen saturation at room air 97%. BMI 40.4. HEENT: Oropharynx extremely low position of soft palate. Mallampati 4. NECK: Supple, no JVD. Thyroid is not palpable. LUNGS: Clear to percussion and to auscultation. Good air exchange. No wheezing or rhonchi. HEART: S1, S2 regular. No murmurs, gallops, or rubs. ABDOMEN: Obese. Soft and nontender. Bowel sounds are present. No organomegaly appreciated. EXTREMITIES: No clubbing or cyanosis. CROWN PRESSER: Awake, alert, and oriented X3. Cranial nerves 2 to 7 intact. There is no fasciculation or atrophy. noted. No focal deficits observed. IMPRESSION: 1. Obstructive sleep apnea-hypopnea syndrome in moderate range close to severe. The patient benefitting from treatment. 2. Sleepiness during the day on control with modafinil 200 mg in the morning. 3. Obesity. 4. Diabetes mellitus. 5. Allergy. 6. Acid reflux. 7. Back problems. 8. History of migraine. 9. Status post tonsillectomy and adenoidectomy. 10.Status post surgery for nasal septum deviation. 11.Status post uvulectomy. PLAN: 1. Prescription for CPAP supplies including AirFit P 10 large nasal pillow mask, filters, and tubing, humidifier chamber. 2. Patient to continue to take modafinil 200 mg in the morning. 3. Precautions related to driving. No driving if feeling sleepiness. Thank you very much for allowing me to participate in management of your patient. Sincerely, Curtis Yang MD, PhD, FAASM Diplomat of [place] [employer] Special[employer] [place] [employer] of Internal Medicine Delicate Fabrics Presser of [facility] [place] MMODL / KLAUSN: [id number] /

== ENCOUNTER → 2021-07-09 | Outpatient (CLI) | payer BC, OTHER ==
--- NOTE | 2021-07-09 19:00 | SFUN ---
SLEEP CENTER FOLLOW UP NOTE DATE OF SERVICE: 07/09/2021 This 41-year-old gentleman has been followed in Sleep Center for treatment of obstructive sleep apnea-hypopnea syndrome. The patient continues to use his CPAP equipment every night for the whole night. He sleeps much better with the machine. But when there was no power in [place] he slept badly, compared to the nights when he was on CPAP. [place] Sleepiness Scale today is increased to 12, but he worked long hours and did not have enough sleep last night. I checked his CPAP unit. Range of the pressure is 5-15, average pressure 9.4 cm of water, usage /30 nights and nights for more than 4 hours, average 7.4 hours per night. Leak is 18 L/minute, which is borderline. Apnea-hypopnea index 2.1, which is totally normal. MEDICATIONS: 1. Tramadol 50 mg-100 mg up to 3 times a day. 2. Farxiga 5 mg once a day. 3. Janumet 50-1000 mg twice a day. 4. Diphenhydramine 25 mg once a day. 5. Claritin 10 mg once a day. 6. Unisom 25 mg once a day. 7. Omeprazole 20 mg once a day. 8. Modafinil 200 mg once a day. PHYSICAL EXAMINATION: GENERAL: Pleasant patient in no distress. VITAL SIGNS: BP 122/77, HR 79, RR 15, height 5 feet 7 inches, weight 250.6, temperature 97.1, oxygen saturation at room air 97%. Body mass index 39.4. The patient lost 8 pounds compared to his previous visit. HEENT: OBDULIARSARITA, EOMI, evaluation of oropharynx showed tongue protrudes midline. Extremely low position of soft palate; Mallampati IV. NECK: Supple, no JVD. Thyroid is not palpable. LUNGS: Clear to percussion and to auscultation. Good air exchange. No wheezing or rhonchi. HEART: S1, S2 regular. No murmurs, gallops, or rubs. ABDOMEN: Obese. EXTREMITIES: No clubbing or cyanosis. JUDICIAL LAW CLERK: Awake, alert, and oriented X3. Cranial nerves 2 to 7 intact. There is no fasciculation or atrophy. noted. No focal deficits observed. IMPRESSION: 1. Obstructive sleep apnea-hypopnea syndrome in moderate range, close to severe range. The patient demonstrated great compliance with treatment, benefitting from treatment. Normal respiration on CPAP. 2. Sleepiness during the day, under control with modafinil. 3. Obesity. 4. Diabetes mellitus. 5. Allergies. 6. Acid reflux. 7. Back problems. 8. History of migraine. 9. Status post tonsillectomy and adenoidectomy. 10.Status post surgery for nasal septum deviation. 11.Status post uvulectomy. PLAN: 1. Patient will continue to use PAP equipment every night for the whole night. 2. Sleep hygiene with regular time in bed for at least 7-1/2 to 8 hours. 3. Precautions related to driving. No driving if feeling sleepiness. 4. I will maintain all necessary prescription for PAP supplies including mask, tube, filters. 5. Watching weight. 6. Follow-up visit in 6 months or earlier if patient has any problems. 7. Patient will continue to take modafinil 200 mg in the morning. Thank you very much for allowing me to participate in the management of your patient. Sincerely, Curtis Yang MD, PhD, FAASM Diplomat of [place] [employer] Specialties Sleep Medicine Board of [place] [employer] of Internal Medicine Cutting Machine Fixer of [facility] [place] MMODL / IJN: [id number] /
== END ==
LOC: SLEEP 16:01
PROVIDERS: ATTEND Internal Medicine
DX: G47.33 Obstructive sleep apnea (adult) (pediatric) (principal); E66.9 Obesity, unspecified; E11.9 Type 2 diabetes mellitus without complications; M53.80 Other specified dorsopathies, site unspecified; K21.9 Gastro-esophageal reflux disease without esophagitis; T78.40XA Allergy, unspecified, initial encounter; Z99.89 Dependence on other enabling machines and devices; Z68.39 Body mass index [BMI] 39.0-39.9, adult; Z86.69 Personal history of other diseases of the nervous system and sense organs; Z90.09 Acquired absence of other part of head and neck; Z98.890 Other specified postprocedural states; Z79.84 Long term (current) use of oral hypoglycemic drugs; Z79.899 Other long term (current) drug therapy; Z87.891 Personal history of nicotine dependence; Z88.1 Allergy status to other antibiotic agents; Z91.012 Allergy to eggs

== ENCOUNTER → 2022-03-03 | Outpatient (CLI) | payer BC, OTHER ==
--- NOTE | 2022-03-04 14:42 | SFUN ---
SLEEP CENTER FOLLOW UP NOTE DATE OF SERVICE: 03/03/2022 This 41-year-old gentleman has been followed in Sleep Center for treatment of obstructive sleep apnea-hypopnea syndrome. The patient continues to use his CPAP equipment every night for the whole night. He needs prescription for replacement of his supplies. [place] Sleepiness Scale today is slightly increased to 11. I checked his CPAP unit. Range of the pressure 5-20, average pressure 8.6, usage 30/30 nights for more than 4 hours, average 8 hours per night. Leak is 17 L/minute, which is borderline. Apnea-hypopnea index is 1.3, which is normal. MEDICATIONS: Tramadol, diphenhydramine, omeprazole, Ozempic, metformin, Farxiga, modafinil mg once a day. PHYSICAL EXAMINATION: GENERAL: Pleasant patient in no distress. VITAL SIGNS: BP 113/80, HR 87, RR 16, weight 227.2 pounds, temperature 97.8, height 5 feet 7 inches, oxygen saturation at room air 97%. HEENT: PERRLA, EOMI, evaluation of oropharynx showed tongue protrudes midline. Extremely low position of soft palate; Mallampati IV. NECK: Supple, no JVD. Thyroid is not palpable. LUNGS: Clear to percussion and to auscultation. Good air exchange. No wheezing or rhonchi. HEART: S1, S2 regular. No murmurs, gallops, or rubs. ABDOMEN: Soft and nontender. Bowel sounds are present. No organomegaly appreciated. EXTREMITIES: No clubbing or cyanosis. STEAM SHOVEL OILER: Awake, alert, and oriented X3. Cranial nerves 2 to 7 intact. There is no fasciculation or atrophy. noted. No focal deficits observed. IMPRESSION: 1. Obstructive sleep apnea-hypopnea syndrome. Patient demonstrated 100% compliance with treatment, benefitting from treatment. 2. Some sleepiness during the day, mostly controlled with modafinil. 3. Diabetes mellitus. 4. Obesity. 5. Allergies. 6. Acid reflux. 7. Back problems. 8. History of migraines. 9. Status post tonsillectomy and adenoidectomy. 10.Status post surgery for nasal septum deviation. 11.Status post uvulectomy. PLAN: 1. Patient will continue to take modafinil 200 mg in the morning. 2. Patient will continue to use PAP equipment every night for the whole night. 3. Sleep hygiene with regular time in bed for at least 7-1/2 to 8 hours. 4. Precautions related to driving. No driving if feeling sleepiness. 5. I will maintain all necessary prescription for PAP supplies including mask, tube, filters. 6. Watching weight. 7. Follow-up visit in 6 months or earlier if patient has any problems. Thank you very much for allowing me to participate in the management of your patient. Sincerely, Curtis Yang MD, PhD, FAASM Diplomat of Citizen Of [place] Board of Medical Specialties Sleep Medicine Board of Citizen Of [place] Board of Internal Medicine Store Sales Manager of [facility] [place] MMODL / IJN: [id number] /
== END ==
LOC: SLEEP 15:50
PROVIDERS: ATTEND Internal Medicine
DX: G47.33 Obstructive sleep apnea (adult) (pediatric) (principal); E11.9 Type 2 diabetes mellitus without complications; E66.9 Obesity, unspecified; K21.9 Gastro-esophageal reflux disease without esophagitis; M53.80 Other specified dorsopathies, site unspecified; G43.909 Migraine, unspecified, not intractable, without status migrainosus; Z90.09 Acquired absence of other part of head and neck; Z98.890 Other specified postprocedural states; Z90.49 Acquired absence of other specified parts of digestive tract; Z99.89 Dependence on other enabling machines and devices; Z79.84 Long term (current) use of oral hypoglycemic drugs; Z88.1 Allergy status to other antibiotic agents; Z91.012 Allergy to eggs

== ENCOUNTER → 2022-09-09 | Outpatient (CLI) | payer BC, OTHER ==
--- NOTE | 2022-09-09 17:55 | P.PN ---
Subjective DATE: 09/09/2022 FOLLOW UP VISIT. Patient with obstructive sleep apnea hypopnea syndrome return to sleep center for follow-up visit. Information from previous visit have been reviewed. Patient is using PAP equipment every night for the whole night, getting PAP supplies in time. The patient does not have significant problems with the mask, PAP unit and humidification. [place] sleepiness scale is increased to 14. I checked information from PAP unit. PAP unit pressure 5-20, average 8 cm H2O. Usage is 100 % for more then 4 hours, average 7.5 hours per night. Leak is 22 l/m, which is in acceptable range. Apnea Hypopnea Index is 1.2, which is normal. MEDICATIONS:1. Omeprazole 2. Metformin 3. Modafinil 200 mg once a day in the morning 4. Diphenhydramine 5. Tramadol During physical exam: GENERAL: A pleasant patient without any distress. VITAL SIGNS: BP 112/77, HR 80, RR 18 , weight 214.8, temperature 97.6, oxygen saturation at room air 96 % . HEENT: PERRLA, EOMI.low position of soft palate, Mallapati 4 . NECK: Supple. No JVD. LUNGS: Clear to percussion and to auscultation. Good air exchange. No wheezing or rhonchi. HEART: S1, S2 regular. ABDOMEN: Soft and nontender. Obese EXTREMITIES: No clubbing or cyanosis. GALLERY DIRECTOR: Awake, alert, and oriented x3. No focal deficit. Impressions: 1. Obstructive sleep apnea-hypopnea syndrome. Patient demonstrated great compliance with treatment, benefiting from treatment. 2. Sleepiness during the day on control with modafinil.. 3. Obesity. 4. Diabetes mellitus. 5. ALLERGIES. 6. Acid reflux. 7. Back problems. 8. History of migraines. 9. Status post tonsillectomy and adenoidectomy. 10. Status post uvulectomy. 11. Status post surgery for nasal septum deviation. Plan: 1. Continue using PAP equipment every night for the whole night. I reduce maximal pressure in AutoPAP to 10 cm of water.Ramp I changed to Auto mode. 2. To change air filter at least 1-2 times per month. 3. PAP unit should stay lower then position of the head. 4. Advised patient to remove all remaining water from humidifier canister daily and make it dry after each usage. Refill canister with fresh distilled water before each usage. 5. Sleep hygiene with regular time in bed for at least 8 hours. 6. Precautions related to driving. No driving if feel any sleepiness. 7. I will maintain prescription for PAP supplies including mask, tube, filters. 8. Follow up visit in 6 months or earlier if patient has any problems. 9. Watching and losing weight. Thank you very much for allowing me to participate in the management of your patient. Curtis Yang MD, PhD, FAASM. Diplomat of [place] Board of Sleep Medicine, Sleep Medicine Board by [place] Board of Internal Medicine Optical Scientist of [facility] [place]
== END ==
LOC: SLEEP 15:03
PROVIDERS: ATTEND Internal Medicine
DX: G47.33 Obstructive sleep apnea (adult) (pediatric) (principal); Z99.89 Dependence on other enabling machines and devices; E66.9 Obesity, unspecified; E11.9 Type 2 diabetes mellitus without complications; K21.9 Gastro-esophageal reflux disease without esophagitis; M54.50 Low back pain, unspecified; G43.909 Migraine, unspecified, not intractable, without status migrainosus; Z90.89 Acquired absence of other organs; Z98.890 Other specified postprocedural states; Z88.0 Allergy status to penicillin; Z91.012 Allergy to eggs; F17.210 Nicotine dependence, cigarettes, uncomplicated
CPT/HCPCS: 99212